=== PATIENT | female | born 1990 | race Two or more races ===

== ENCOUNTER → 2023-06-05 09:13 | Outpatient (BNVA) | payer OTHER, SELFPAY | PROVIDERS: PCP Pediatrics; Visit Provider Surgery ==

== ENCOUNTER 2023-07-12 08:03 | Outpatient (AMB) | payer OTHER, SELFPAY ==
--- OUTSIDE RECORDS SUMMARY | 2023-07-12 08:04 | XMS_ITS | Continuity of Care Document ---
Author Organization [facility] Address [address] [place] [address]- Care Team Providers Care Kiln Pusher Name Role Phone Ora Mendoza MD Primary Care Physician [place] [facility] [place] - 12/18/[address] [address]- Attending Physician: Not on Staff, Attending MD Allergies, Adverse Reactions, Alerts No Known Medication Allergies Immunizations Given and Recorded Vaccine Date Status Refusal Reason Measles/Mumps/Rubella Virus Vaccine 1 09/09/20 Giv en influenza virus vaccine, inactivated 01/15/19 Give n influenza virus vaccine, inactivated 05/17/17 Give n influenza virus vaccine, inactivated 08/02/15 Give n tetanus/diphtheria/pertussis, acel(Tdap) 08/02/15 Given 1Result Comment: diluent lot # [id number] 01/17/22 Medications cetirizine 10 mg oral tablet 1 tablet = 10 mg, By Mouth, Daily, # 90 tablet, 1 Refills, Maintenance, 06/30/18 13:06:48 EDT, Tablet Start Date: 06/30/18 Stop Date: 07/30/18 Status: Ordered fluconazole 150 mg oral tablet 1 tablet = 150 mg, By Mouth, Once, Repeat dose if still having symptoms in 3-7 days, # 1 tablet, 1 Refills, Soft Stop, 08/19/20 18:22:00 EDT, Tablet, [facility]/pharmacy #[id number], Partial fill upon patient request if the prescription is for a schedule II opioid... Start Date: 08/19/20 Status: Ordered left wrist splint left wrist splint, See Instructions, # 1 each, Refills 0, Tot. Refills 0, Maintenance, Dx: left carpel tunnel syndrome, 12/13/20 13:43:00 EDT, Supply Start Date: 12/13/20 Status: Ordered right wrist splint right wrist splint, See Instructions, # 1 each, Refills 0, Tot. Refills 0, Maintenance, Dx: right carpel tunnel syndrome, 12/13/20 13:44:00 EDT, Supply Start Date: 12/13/20 Status: Ordered SUMAtriptan 50 mg oral tablet 1 tablet = 50 mg, By Mouth, Daily, PRN for migraine headache, for 14 days, may repeat dose after 2 hours up to a maximum of 2, # 9 tablet, 0 Refills, Acute 12/23/20 10:41:00 EDT, 12/09/20 10:41:00 EDT, Tablet, [facility]/pharmacy #[id number], Partial fill upon pat... Start Date: 12/09/20 Stop Date: 12/23/20 Status: Ordered Problem List Condition Effective Dates Status Health Status Inform ant Obesity (BMI 35.0-39.9 witho ut comorbidity)(Confirmed) Active Carpal tunnel syndrome(Confirmed) Active
--- OUTSIDE RECORDS SUMMARY | 2023-07-12 08:04 | XMS_ITS | Continuity of Care Document ---
Author Organization [facility] Address [address] [place] [address]- Care Team Providers Care Casket Trimmer Name Role Phone Chencho Pina MD Primary Care Physician [place] [facility] [place](s[place] 07/27/19 - 08/26/[address] [address]- [facility] Attending Physician: Ladan Thibodeaux MD Allergies, Adverse Reactions, Alerts No Known Medication Allergies Immunizations Given and Recorded Vaccine Date Status Refusal Reason influenza virus vaccine, inactivated 01/15/19 Give n influenza virus vaccine, inactivated 05/17/17 Give n influenza virus vaccine, inactivated 08/02/15 Give n tetanus/diphtheria/pertussis, acel(Tdap) 08/02/15 Given Medications cetirizine 10 mg oral tablet 1 tablet = 10 mg, By Mouth, Daily, # 90 tablet, 1 Refills, Maintenance, 06/30/18 13:06:48 EDT, Tablet Start Date: 06/30/18 Stop Date: 07/30/18 Status: Ordered Heating Pad See Instructions, # 1 each, Maintenance, apply to upper back 3 times a day as needed for back pain for 20minutes at a time, 05/17/17 11:33:52, Compound Start Date: 05/17/17 Status: Ordered ibuprofen 800 mg oral tablet 800 mg, 1, tablet, By Mouth, 3 times a day, PRN, # 60 tablet, Refills 1, Tot. Refills 1, Acute 03/24/20 10:34:00 EST, for pain, 05/25/19 10:31:00 EST, Route to Pharmacy Electronically, [facility]/pharmacy #[id number], 154.1, cm, 05/25/19 9:56:00 EST, Height Start Date: 05/25/19 Stop Date: 03/24/20 Status: Ordered Right Thumb Spica Splint Right Thumb Spica Splint, See Instructions, # 1 each, Refills 0, Tot. 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 Refills 0, Maintenance, Left wrist splint to be worn every night to bed for carpal tunnel syndrome G56.00, 03/13/19 11:28:00 EST, Compound Start Date: 03/13/19 Status: Ordered Wrist splint cocked to neutral position Wrist splint cocked to neutral position, See Instructions, # 1 each, Refills 0, Tot. Refills 0, Maintenance, right wrist splint to be worn every night to bed for carpal tunnel syndrome G56.00, 09/05/18 9:34:55 EDT, Compound Start Date: 09/05/18 Status: Ordered
--- OUTSIDE RECORDS SUMMARY | 2023-07-12 08:04 | XMS_ITS | Continuity of Care Document ---
Author Organization [facility] Address [address] [place] [address]- Care Team Providers Care Laborer/Key Man Name Role Phone Kelly KC, Ora Ariza Primary Care Physician [place] [facility] [place] - 07/29/[address] [address]- Allergies, Adverse Reactions, Alerts No Known Medication [...] Date: 06/30/18 Stop Date: 07/30/18 Status: Ordered Right Thumb Spica Splint Right [...] EDT, Compound Start Date: 09/05/18 Status: Ordered Problem List Condition Effective Dates Status Health Status Inform ant Carpal tunnel syndrome(Confirmed) Active
--- OUTSIDE RECORDS SUMMARY | 2023-07-12 08:05 | XMS_ITS | Continuity of Care Document ---
Author Organization [facility] Address [address] [facility], [address], [address] [place] [address]- Care Team Providers Care At&T Retailer Sales Consultant Name Role Phone Chencho Pina MD Primary Care Physician [place] [facility] [place] 07/22/19 - 08/26/19 [facility] [address], [address], [address] [place] [address] [facility] Attending Physician: Steven Hidalgo MD Referring Physician: Red LAMB, Jessica Allergies, Adverse Reactions, Alerts No Known Medication [...] 05/25/19 10:31:00 EST, Route to Pharmacy Electronically, [facility]/pharmacy #[id number], 154.1, cm, 05/25/19 9:56:00 EST, Height [...]
--- OUTSIDE RECORDS SUMMARY | 2023-07-12 08:05 | XMS_ITS | Continuity of Care Document ---
Author Organization [facility] Address [address] [place] [address]- Care Team Providers Care Batter Mixer Name Role Phone Chencho Pina MD Primary Care Physician ( [phone] Encounter [facility] [place] [id number] Date(s): 03/13/19 - 03/23/[address] [address]- [place] Attending Physician: Admnataliia, Lucy Admitting Physician: Admtr, [id number] Referring Physician: Admtr, Ar8 Allergies, Adverse Reactions, Alerts No Known Medication [...] Date: 06/30/18 Stop Date: 07/30/18 Status: Ordered diclofenac potassium 50 mg oral tablet 1 tablet = 50 mg, By Mouth, 3 times a day, for 14 days, # 42 tablet, 0 Refills, Acute 03/27/19 11:21:00 EST, 03/13/19 11:21:00 EST, [facility]/pharmacy #[id number], 154.1, cm, 03/13/19 10:45:00 EST, Height Start Date: 03/13/19 Stop Date: 03/27/19 Status: Ordered Heating Pad See Instructions, # 1 each, Maintenance, apply to upper back 3 times a day as needed for back pain for 20minutes at a time, 05/17/17 11:33:52, Compound Start Date: 05/17/17 Status: Ordered Right Thumb Spica Splint Right [...]
--- OUTSIDE RECORDS SUMMARY | 2023-07-12 08:05 | XMS_ITS | Continuity of Care Document ---
Author Organization [facility] Address [address] [place] [address]- Care Team Providers Care Belt Buckle Maker Name Role Phone Kelly KC, Ora Ariza Primary Care Physician Encounter [facility] Date(s): 04/13/20 - 05/13/[address] [address]- Allergies, Adverse Reactions, Alerts No Known Medication [...]
--- OUTSIDE RECORDS SUMMARY | 2023-07-12 08:05 | XMS_ITS | Continuity of Care Document ---
Author Organization [facility] Address [address] [place] [address]- Care Team Providers Care Behavioral Psychologist Name Role Phone Ora Mendoza MD Primary Care Physician Encounter [facility] [place] Date(s): 07/18/20 - 09/11/[address] [address] Attending Physician: Not on Staff, Attending MD Referring Physician: Ora Mendoza MD Allergies, Adverse Reactions, Alerts No Known Medication Allergies Immunizations Given and Recorded Vaccine Date Status Refusal Reason Measles/Mumps/Rubella Virus Vaccine 1 09/09/20 Giv en influenza virus vaccine, inactivated 01/15/19 Give n influenza virus vaccine, inactivated 05/17/17 Give n influenza virus vaccine, inactivated 08/02/15 Give n tetanus/diphtheria/pertussis, acel(Tdap) 08/02/15 Given 1Result Comment: diluent lot # [id number] exp 01/17/22 Medications cetirizine 10 mg oral tablet 1 tablet = 10 mg, By Mouth, Daily, # 90 tablet, 1 Refills, Maintenance, 06/30/18 13:06:48 EDT, Tablet Start Date: 06/30/18 Stop Date: 07/30/18 Status: Ordered cyclobenzaprine 5 mg oral tablet 1 tablet = 5 mg, By Mouth, 3 times a day, for 7 days, # 21 tablet, 0 Refills, Acute 09/13/20 15:32:00 EDT, 09/06/20 15:32:00 EDT, Tablet, [facility]/pharmacy #[id number], Partial fill upon patient request if the prescription is for a schedule II opioid drug., 154.... Start Date: 09/06/20 Stop Date: 09/13/20 Status: Ordered fluconazole 150 mg oral tablet 1 tablet = 150 mg, By Mouth, Once, Repeat dose if still having symptoms in 3-7 days, # 1 tablet, 1 Refills, Soft Stop, 08/19/20 18:22:00 EDT, Tablet, [facility]/pharmacy #[id number], Partial fill upon patient request if the prescription is for a schedule II opioid... Start Date: 08/19/20 Status: Ordered naproxen 500 mg oral tablet 1 tablet = 500 mg, By Mouth, 2 times a day, PRN for pain, for 10 days, # 20 tablet, 0 Refills, Acute 09/16/20 15:32:00 EDT, 09/06/20 15:32:00 EDT, Tablet, [facility]/pharmacy #[id number], Partial fill upon patient request if the prescription is for a schedule II o... Start Date: 09/06/20 Stop Date: 09/16/20 Status: Ordered Problem List Condition Effective Dates Status Health Status Inform ant Obesity (BMI 35.0-39.9 witho ut comorbidity)(Confirmed) Active Carpal tunnel syndrome(Confirmed) Active
--- OUTSIDE RECORDS SUMMARY | 2023-07-12 08:05 | XMS_ITS | Continuity of Care Document ---
Author Organization [facility] Address [address] [place] [address]- Care Team Providers Care Supervisor Process Testing Name Role Phone Ora Mendoza MD Primary Care Physician En[place] [facility] [place] Date(s): 10/09/19 - 11/29/[address] [address]- [facility] Attending Physician: Miroslava Mcmillan CNM Admitting Physician: Miroslava Mcmillan CNM Referring Physician: Ora Mendoza MD Allergies, Adverse [...] Date: 06/30/18 Stop Date: 07/30/18 Status: Ordered ibuprofen 800 mg oral tablet 800 mg, 1, tablet, By Mouth, 3 times a day, PRN, # 60 tablet, Refills 1, Tot. Refills 1, Acute 03/24/20 10:34:00 EST, for pain, 05/25/19 10:31:00 EST, Route to Pharmacy Electronically, [facility]/pharmacy #[id number], 154.1, cm, 05/25/19 9:56:00 EST, [...]
--- OUTSIDE RECORDS SUMMARY | 2023-07-12 08:05 | XMS_ITS | Continuity of Care Document ---
Author Organization [facility] Address [address] [place] [address]- Care Team Providers Care Fisheries Management Biologist Name Role Phone Chencho Pina MD Primary Care Physician ( [phone] [place] [facility] [place] 02/11/19 - 04/02/[address] [address]- [facility] Attending Physician: Crystal Tamayo MD Admitting Physician: Crystal Tamayo MD Allergies, Adverse Reactions, Alerts No Known [...]
--- OUTSIDE RECORDS SUMMARY | 2023-07-12 08:05 | XMS_ITS | Continuity of Care Document ---
Author Organization [facility] Address [address] [place] [address]- Care Team Providers Care Med Surg Nurse Name Role Phone Ora Mendoza MD Primary Care Physician [place] [facility] [place](s[place] 09/04/19 - 10/07/[address] [address]- [place] Attending Physician: Ladan Thibodeaux MD Admitting Physician: Ladan Thibodeaux MD Allergies, Adverse Reactions, [...] 05/25/19 10:31:00 EST, Route to Pharmacy Electronically, [facility]/pharmacy #[id number], 154.1, cm, 05/25/19 9:56:00 EST, Height [...]
--- OUTSIDE RECORDS SUMMARY | 2023-07-12 08:05 | XMS_ITS | Continuity of Care Document ---
Author Organization [facility] Address [address] [place] [address]- Care Team Providers Care Building Architectural Designer Name Role Phone Kelly KC, Ora Ariza Primary Care Physician Encounter [facility] Date(s): 02/25/20 - 03/26/[address] [address]- Allergies, Adverse Reactions, Alerts No Known Medication [...]
--- OUTSIDE RECORDS SUMMARY | 2023-07-12 08:05 | XMS_ITS | Continuity of Care Document ---
Author Organization [facility] Address [address] [place] [address]- Care Team Providers Care Plumber'S Helper Name Role Phone Kelly KC, Ora Ariza Primary Care Physician Encounter [facility] Date(s): 02/22/20 - 03/23/[address] [address] Allergies, Adverse Reactions, Alerts No Known Medication [...] 05/25/19 10:31:00 EST, Route to Pharmacy Electronically, [facility]/pharmacy #[id number], 154.1, cm, 05/25/19 9:56:00 EST, [...]
--- OUTSIDE RECORDS SUMMARY | 2023-07-12 08:05 | XMS_ITS | Continuity of Care Document ---
Author Organization [facility] Address [address] [place] [address]- Care Team Providers Care Copy Center Associate Name Role Phone Kelly KC, Ora Ariza Primary Care Physician Encounter [facility] Date(s): 10/01/19 - 10/31/[address] [address]- [facility] Allergies, Adverse Reactions, Alerts No Known Medication [...] 05/25/19 10:31:00 EST, Route to Pharmacy Electronically, [facility]/pharmacy #[id number], 154.1, cm, 05/25/19 9:56:00 EST, Height [...]
--- OUTSIDE RECORDS SUMMARY | 2023-07-12 08:05 | XMS_ITS | Continuity of Care Document ---
Author Organization [facility] Address [address] [place] [address]- Care Team Providers Care Physician Practice Manager Name Role Phone Kelly KC, Ora Ariza Primary Care Physician Encounter [facility] Date(s): 02/28/21 - 03/30/[address] [address] Allergies, Adverse Reactions, Alerts No Known Medication Allergies Immunizations Given and Recorded Vaccine Date Status Refusal Reason Measles/Mumps/Rubella Virus Vaccine 1 09/09/20 Giv en influenza virus vaccine, inactivated 01/15/19 Give n influenza virus vaccine, inactivated 05/17/17 Give n influenza virus vaccine, inactivated 08/02/15 Give n tetanus/diphtheria/pertussis, acel(Tdap) 08/02/15 Given 1Result Comment: diluent lot # [id number] exp 01/17/22 Medications cetirizine 10 mg oral tablet 1 tablet = 10 mg, By Mouth, Daily, # 90 tablet, 1 Refills, Maintenance, 06/30/18 13:06:48 EDT, Tablet Start Date: 06/30/18 Stop Date: 07/30/18 Status: Ordered ibuprofen 600 mg oral tablet 600 mg, 1, tablet, By Mouth, 3 times a day, PRN, for 30 days, en espanol: take as soon as you feel a migraine coming on, # 90 tablet, Refills 0, Tot. Refills 0, Acute 04/08/21 12:06:00 EST, Headache,03/09/21 12:06:00 EST, Route to Pharmacy Electron... Start Date: 03/09/21 Stop Date: 04/08/21 Status: Ordered left wrist splint left wrist [...] EDT, Supply Start Date: 12/13/20 Status: Ordered Problem List Condition Effective Dates Status Health Status Inform ant Obesity (BMI 35.0-39.9 witho ut comorbidity)(Confirmed) Active Carpal tunnel syndrome(Confirmed) Active Obese class II(Confirmed) Active
--- OUTSIDE RECORDS SUMMARY | 2023-07-12 08:05 | XMS_ITS | Continuity of Care Document ---
Author Organization [facility] Address [address] [place] [address]- Care Team Providers Care Research Support Specialist Name Role Phone Ora Mendoza MD Primary Care Physician En[place] [facility] [place] Date(s): 09/18/19 - 10/21/[address] [address]- [facility] Attending Physician: Not on Staff, Attending MD [...] 05/25/19 10:31:00 EST, Route to Pharmacy Electronically, [facility]/pharmacy #[id number], 154.1, cm, 05/25/19 9:56:00 EST, [...]
--- OUTSIDE RECORDS SUMMARY | 2023-07-12 08:05 | XMS_ITS | Continuity of Care Document ---
Author Organization [facility] Address [address] [place] [address]- Care Team Providers Care Vp Corporate Partnerships Name Role Phone Kelly KC, Ora Ariza Primary Care Physician [place] [facility] [place](s[place] 11/24/21 - 12/24/[address] [address]- Allergies, Adverse Reactions, Alerts No Known Medication Allergies Immunizations Given and Recorded Vaccine Date Status Refusal Reason SARS-CoV-2 mRNA ([id number]) vax 05/04/21 Recorded SARS-CoV-2 mRNA ([id number]-[id number]) vax 04/13/21 Recorded Measles/Mumps/Rubella Virus Vaccine 1 09/09/20 Giv en influenza virus vaccine, inactivated 01/15/19 Give n influenza virus vaccine, inactivated 05/17/17 Give n influenza virus vaccine, inactivated 08/02/15 Give n tetanus/diphtheria/pertussis, acel(Tdap) 08/02/15 Given 1Result Comment: diluent lot # [id number] exp 01/17/22 Medications cetirizine 10 mg oral tablet 1 tablet = 10 mg, By Mouth, Daily, # 90 tablet, 1 Refills, Maintenance, 07/14/21 9:56:00 EDT, Tablet, [facility]/pharmacy #[id number], 154.1, cm, 03/09/21 11:54:00 EST, Height, 93.1, kg, 09/23/19 10:07:00 EDT, Dry Weight Start Date: 07/14/21 Status: Ordered ibuprofen 600 mg oral tablet 1, tablet, By Mouth, 2 times a day, PRN, # 60 tablet, Refills 0, Tot. Refills 0, Maintenance, Pain , Moderate, 11/09/21 12:18:00 EDT, Route to Pharmacy Electronically, [facility]/pharmacy #[id number], 154.1, cm, 03/09/21 11:54:00 EST, Height Start Date: 11/09/21 Status: Ordered left wrist splint left wrist [...] EDT, Supply Start Date: 12/13/20 Status: Ordered Topamax 25 mg oral tablet 1 tablet = 25 mg, By Mouth, Daily, For migraine prevention, must be taken daily., # 30 tablet, 5 Refills, Maintenance, 04/14/21 18:22:00 EST, Tablet, [facility]/pharmacy #[id number], Partial fill upon patient request if the prescription is for a schedule II opioid... Start Date: 04/14/21 Stop Date: 10/11/21 Status: Ordered Problem List Condition Confirmation Course Effective Dates Status Health St atus Informant Obesity (BMI 35.0-39.9 without comorbidity) Confirmed Active Carpal tunnel syndrome Confirmed Active Migraine Confirmed Active Nasal congestion Confirmed Active Obese class II Confirmed Active Patient Care team information Personnel Name: Ora Mendoza MD Address: Address: [address] [place] [address] [id number]
--- OUTSIDE RECORDS SUMMARY | 2023-07-12 08:05 | XMS_ITS | Continuity of Care Document ---
Author Organization [facility] Address [address] [place] [address]- Care Team Providers Care Radiologic Technologist Mammogram Name Role Phone Kelly KC, Ora Ariza Primary Care Physician [place] [facility] [place]07[place] - 07/07/[address] [address]- Allergies, Adverse Reactions, Alerts No Known Medication Allergies Immunizations Given and Recorded Vaccine Date Status Refusal Reason influenza virus vaccine, inactivated 02/08/22 Give n influenza virus vaccine, inactivated 01/15/19 Give n influenza virus vaccine, inactivated 05/17/17 Give n influenza virus vaccine, inactivated 08/02/15 Give n [id number] 12y+ bivalent booster vax 02/08/22 Given SARS-CoV-2 mRNA (qvxccuq-[id number]-ljmws) vax 05/04/21 Recorded SARS-CoV-2 mRNA ([id number]-[id number]-wnfrc) vax 04/13/21 Recorded Measles/Mumps/Rubella Virus Vaccine 1 09/09/20 Giv en tetanus/diphtheria/pertussis, acel(Tdap) 08/02/15 Given 1Result Comment: diluent lot # [id number] exp 01/17/22 Medications ibuprofen 600 mg oral tablet 1, tablet, By Mouth, 2 times a day, PRN, # 60 tablet, Refills 1, Tot. Refills 1, Maintenance, Pain , Moderate, 04/24/22 8:24:00 EST, Route to Pharmacy Electronically, [facility]/pharmacy #[id number], 154.1, cm, 02/08/22 15:06:00 EST, Height Start Date: 04/24/22 Status: Ordered left wrist splint left wrist splint, See Instructions, # 1 each, Refills 0, Tot. Refills 0, Maintenance, Dx: left carpel tunnel syndrome, 12/13/20 13:43:00 EDT, Supply Start Date: 12/13/20 Status: Ordered oxyCODONE 5 mg oral tablet 5 mg, 1, tablet, By Mouth, Every 4 hours, PRN, Refills 0, Tot. Refills 0, Maintenance, for pain, 06/15/22 9:19:00 EDT, Partial fill upon patient request if the prescription is for a schedule II opioid drug. Start Date: 06/15/22 Status: Ordered right wrist splint right wrist splint, See Instructions, # 1 each, Refills 0, Tot. Refills 0, Maintenance, Dx: right carpel tunnel syndrome, 12/13/20 13:44:00 EDT, Supply Start Date: 12/13/20 Status: Ordered Problem List Condition Confirmation Course Effective Dates Status Health St atus Informant Obesity (BMI 35.0-39.9 without comorbidity) Confirmed Active Carpal tunnel syndrome Confirmed Active Dysuria Confirmed Active Migraine Confirmed Active Nasal congestion Confirmed Active Obese class II Confirmed Active Patient Care team information Care Team Personnel Name: Kelly KC, Ora Ariza Position: S Resident Member Role: PCP Address: Address: [address] [place] [address]- Care Team Related Persons Name: ABY OBREGON Name: JACEK TURNER Address: home [address] [place] [address] Name: LATASHA TURNER Address: home [address] [place] [address]
--- OUTSIDE RECORDS SUMMARY | 2023-07-12 08:05 | XMS_ITS | Continuity of Care Document ---
Author Organization [facility] Address [address] [place] [address]- Care Team Providers Care Sheet Metal Worker Supervisor Name Role Phone Kelly KC, Ora Ariza Primary Care Physician Encounter [facility] [place] Date(s): 11/29/20 - 12/29/[address] [address] Allergies, Adverse Reactions, Alerts No Known Medication Allergies Immunizations Given and Recorded Vaccine Date Status Refusal Reason Measles/Mumps/Rubella Virus Vaccine 1 09/09/20 Giv en influenza virus vaccine, inactivated 01/15/19 Give n influenza virus vaccine, inactivated 05/17/17 Give n influenza virus vaccine, inactivated 08/02/15 Give n tetanus/diphtheria/pertussis, acel(Tdap) 08/02/15 Given 1Result Comment: diluent lot # [id number] 01/17/22 Medications cetirizine 10 mg oral [...] Refills, Soft Stop, 08/19/20 18:22:00 EDT, Tablet, [facility]/pharmacy #[id number], Partial fill upon patient request if the [...]
--- OUTSIDE RECORDS SUMMARY | 2023-07-12 08:05 | XMS_ITS | Continuity of Care Document ---
Author Organization [facility] Address [address] [place] [address]- Care Team Providers Care Tank Truck Mechanic Name Role Phone Ora Mendoza MD Primary Care Physician Encounter [facility] [place] ACCT R [id number] Date(s): 11/23/22 - 12/23/[address] [address]- Attending Physician: Admtr, Herev8 Admitting Physician: Admtr, Ar8 Referring Physician: Admtr, Ar8 Allergies, Adverse Reactions, Alerts No Known Medication Allergies Immunizations Given and Recorded Vaccine Date Status Refusal Reason influenza virus vaccine, inactivated 02/08/22 Give n influenza virus vaccine, inactivated 01/15/19 Give n influenza virus vaccine, inactivated 05/17/17 Give n influenza virus vaccine, inactivated 08/02/15 Give n [id number] 12y+ bivalent booster vax 02/08/22 Given SARS-CoV-2 mRNA (pqaalus-zsni-uooyh) vax 05/04/21 Recorded SARS-CoV-2 mRNA (qjbkunm-gjhc-zesuy) vax 04/13/21 Recorded Measles/Mumps/Rubella Virus Vaccine 1 09/09/20 Giv en tetanus/diphtheria/pertussis, acel(Tdap) 08/02/15 Given 1Result Comment: diluent lot # [id number] exp 01/17/22 Medications ibuprofen 600 mg oral tablet 1, tablet, By Mouth, 2 times a day, PRN, # 60 tablet, Refills 1, Tot. Refills 1, Maintenance, Pain , Moderate, 04/24/22 8:24:00 EST, Route to Pharmacy Electronically, [facility]/pharmacy #[id number], 154.1, cm, 02/08/22 15:06:00 EST, Height Start Date: 04/24/22 Status: Ordered ibuprofen 800 mg oral tablet 800 mg, 1, tablet, By Mouth, 3 times a day, # 90 tablet, Refills 0, Tot. Refills 0, Acute 03/24/23 15:45:00 EST, 11/23/22 15:45:00 EDT, Route to Pharmacy Electronically, [facility]/pharmacy #[id number], Partial fill upon patient request if the prescription is for... Start Date: 11/23/22 Stop Date: 03/24/23 Status: Ordered left wrist splint left wrist [...] Confirmed Active Obese class II Confirmed Active Social History Social History Type Response Smoking Status Never (less than 100 in lifetime) entered on: 10/10/22 Sex Patient Care team information Care Team Personnel Name: Ora Mendoza MD Position: S Resident Member Role: PCP Address: Address: [address] [place] [address]- Care Team Related Persons Name: ABY OBREGON Name: JACEK TURNER Address: home [address] [place] [address] Name: LATASHA TURNER Address: home [address] [place] [address]
--- OUTSIDE RECORDS SUMMARY | 2023-07-12 08:05 | XMS_ITS | Continuity of Care Document ---
Author Organization [facility] Address [address] [place] [address]- Care Team Providers Care Ripening Room Attendant Name Role Phone Kelly KC, Ora Ariza Primary Care Physician Encounter [facility] ACCT [facility] [id number] Date(s): 12/29/20 - 01/28/[address] [address]- Attending Physician: Lucy Leavitt Admitting Physician: Admtr, Lucy Referring Physician: Admtr, Ar8 Allergies, Adverse Reactions, Alerts No Known Medication Allergies Immunizations Given and Recorded Vaccine Date Status Refusal Reason Measles/Mumps/Rubella Virus Vaccine 1 09/09/20 Giv en influenza virus vaccine, inactivated 01/15/19 Give n influenza virus vaccine, inactivated 05/17/17 Give n influenza virus vaccine, inactivated 08/02/15 Give n tetanus/diphtheria/pertussis, acel(Tdap) 08/02/15 Given 1Result Comment: diluent lot # [id number] exp 01/17/22 Medications cetirizine 10 mg oral [...] Refills, Soft Stop, 08/19/20 18:22:00 EDT, Tablet, [id number], Partial fill upon patient request if the [...]
--- OUTSIDE RECORDS SUMMARY | 2023-07-12 08:05 | XMS_ITS | Continuity of Care Document ---
Author Organization [facility] Address [address] [place] [address]- Care Team Providers Care Slip Laster Name Role Phone Ora Mendoza MD Primary Care Physician [place] [facility] [place]/16/[place] - 03/24/[address] [address] Attending Physician: Subha Márquez MD Admitting Physician: Subha Márquez MD Referring Physician: Ora Mendoza MD Allergies, Adverse Reactions, Alerts No Known Medication Allergies Immunizations Given and Recorded Vaccine Date Status Refusal Reason influenza virus vaccine, inactivated 02/08/22 Give n influenza virus vaccine, inactivated 01/15/19 Give n influenza virus vaccine, inactivated 05/17/17 Give n influenza virus vaccine, inactivated 08/02/15 Give n [id number] 12y+ bivalent booster vax 02/08/22 Given SARS-CoV-2 mRNA (ppzrchp-cacx-bcrcu) vax 05/04/21 Recorded SARS-CoV-2 mRNA (yffboab-wwjd-mrokj) vax 04/13/21 Recorded Measles/Mumps/Rubella Virus Vaccine 1 09/09/20 Giv en tetanus/diphtheria/pertussis, acel(Tdap) 08/02/15 Given 1Result Comment: diluent lot # [id number] exp 01/17/22 Medications ibuprofen 600 mg oral tablet 1, tablet, By Mouth, 2 times a day, PRN, # 60 tablet, Refills 0, Tot. Refills 0, Maintenance, Pain , Moderate, 02/08/22 15:31:00 EST, Route to Pharmacy Electronically, [facility]/pharmacy #[id number], 154.1, cm, 02/08/22 15:06:00 EST, Height Start Date: 02/08/22 Status: Ordered left wrist splint left wrist [...] daily., # 30 tablet, 5 Refills, Maintenance, 02/08/22 15:31:00 EST, Tablet, [facility]/pharmacy #[id number], Partial fill upon patient request if the prescription is for a schedule II opioid... Start Date: 02/08/22 Stop Date: 08/07/22 Status: Ordered Problem List Condition Confirmation Course Effective Dates Status Health St atus Informant Obesity (BMI 35.0-39.9 without comorbidity) Confirmed Active Carpal tunnel syndrome Confirmed Active Migraine Confirmed Active Nasal congestion Confirmed Active Obese class II Confirmed Active Patient Care team information Care Team Personnel Name: Ora Mendoza MD Position: S Resident Member Role: PCP Address: Address: [address] [place] [address]- Care Team Related Persons Name: ABY OBREGON Name: JACEK TURNER Address: home [address] [place] [address] Name: LATASHA TURNER Address: home [address] [facility] [place] [address]
--- OUTSIDE RECORDS SUMMARY | 2023-07-12 08:05 | XMS_ITS | Continuity of Care Document ---
Author Organization [facility] Address [address] [place] [address]- Care Team Providers Care Helicopter Repairer Name Role Phone Kelly KC, Ora Ariza Primary Care Physician Encounter [facility] [place] Date(s): 10/30/19 - 11/29/[address] [address]- [facility] Attending Physician: Admtr, Herve8 Admitting Physician: Admtr, Ar8 Referring Physician: Admtr, [...] 05/25/19 10:31:00 EST, Route to Pharmacy Electronically, [facility]/pharmacy #[id number], 154.1, cm, 05/25/19 9:56:00 EST, [...]
--- OUTSIDE RECORDS SUMMARY | 2023-07-12 08:05 | XMS_ITS | Continuity of Care Document ---
Author Organization [facility] Address [address] [place] [address]- Care Team Providers Care Packaging Sales Consultant Name Role Phone Kelly KC, Ora Ariza Primary Care Physician Encounter [facility] Date(s): 08/18/20 - 09/17/[address] [address]- Allergies, Adverse Reactions, Alerts No Known Medication Allergies Immunizations Given and Recorded Vaccine Date Status Refusal Reason Measles/Mumps/Rubella Virus Vaccine 1 09/09/20 Giv en influenza virus vaccine, inactivated 01/15/19 Give n influenza virus vaccine, inactivated 05/17/17 Give n influenza virus vaccine, inactivated 08/02/15 Give n tetanus/diphtheria/pertussis, acel(Tdap) 08/02/15 Given 1Result Comment: diluent lot # [id number] exp 01/17/22 Medications cetirizine 10 mg oral [...] Soft Stop, 08/19/20 18:22:00 EDT, Tablet, [facility]/pharmacy #[id number], Partial fill upon patient request if the prescription is for a schedule II opioid... Start Date: 08/19/20 Status: Ordered Problem List Condition Effective Dates Status Health Status Inform ant Obesity (BMI 35.0-39.9 witho ut comorbidity)(Confirmed) Active Carpal tunnel syndrome(Confirmed) Active
--- OUTSIDE RECORDS SUMMARY | 2023-07-12 08:05 | XMS_ITS | Continuity of Care Document ---
Author Organization [facility] Address [address] [place] [address]- Care Team Providers Care Brick Shader Name Role Phone Kelly KC, Ora Ariza Primary Care Physician [place] [facility] [place] R [id number] Date(s): 12/13/20 - 01/28/[address] [address]- Attending Physician: Not on Staff, Attending MD Allergies, Adverse Reactions, Alerts No Known Medication Allergies Immunizations Given and Recorded Vaccine Date Status Refusal Reason Measles/Mumps/Rubella Virus Vaccine 1 09/09/20 Giv en influenza virus vaccine, inactivated 01/15/19 Give n influenza virus vaccine, inactivated 05/17/17 Give n influenza virus vaccine, inactivated 08/02/15 Give n tetanus/diphtheria/pertussis, acel(Tdap) 08/02/15 Given 1Result Comment: diluent lot # [id number] exp 01/17/22 Medications cetirizine 10 mg oral [...] Soft Stop, 08/19/20 18:22:00 EDT, Tablet, [id number], Partial fill upon patient request if the [...]
--- OUTSIDE RECORDS SUMMARY | 2023-07-12 08:05 | XMS_ITS | Continuity of Care Document ---
Author Organization [facility] Address [address] [place] [address]- Care Team Providers Care Bus Or Truck Garage Mechanic Name Role Phone Ora Mendoza MD Primary Care Physician Encounter [facility] [place] Date(s): 04/02/23 - 05/02/[address] [address]- Allergies, Adverse Reactions, Alerts No Known Medication Allergies Immunizations Given and Recorded Vaccine Date Status Refusal Reason influenza virus vaccine, inactivated 02/08/22 Give n influenza virus vaccine, inactivated 01/15/19 Give n influenza virus vaccine, inactivated 05/17/17 Give n influenza virus vaccine, inactivated 08/02/15 Give n [id number] 12y+ bivalent booster vax 02/08/22 Given SARS-CoV-2 mRNA (dpdqmnl-jdgu-mqiwx) vax 05/04/21 Recorded SARS-CoV-2 mRNA (eyxtlbu-cfft-omzsy) vax 04/13/21 Recorded Measles/Mumps/Rubella Virus Vaccine 1 09/09/20 Giv en tetanus/diphtheria/pertussis, acel(Tdap) 08/02/15 Given 1Result Comment: diluent lot # [id number] exp 01/17/22 Medications Aerochamber See Instructions, # 1 each, Maintenance, to be used with asthmanex, 03/12/23 9:13:00 EST, Supply, 156, cm, 03/12/23 8:53:00 EST, Height, 99.4, kg, 03/04/23 22:47:00 EST, Dry Weight Start Date: 03/12/23 Status: Ordered escitalopram 10 mg oral tablet 1 tablet = 10 mg, By Mouth, Daily, # 30 tablet, 11 Refills, Maintenance, 05/01/23 17:48:00 EST, Tablet, [facility]/pharmacy #[id number], Partial fill upon patient request if the prescription is for a schedule II opioid drug., 156, cm, 05/01/23 16:03:00 EST, Height... Start Date: 05/01/23 Status: Ordered hydrOXYzine hydrochloride 25 mg oral tablet 1 capsule, By Mouth, 4 times a day, PRN for itching, # 40 capsule, 0 Refills, Maintenance, 05/01/2416:12:00 EST, Capsule, Partial fill upon patient request if the prescription is for a schedule II opioid drug. Start Date: 05/01/23 Stop Date: 05/11/23 Status: Ordered ibuprofen 200 mg oral tablet 400 mg, 2, tablet, By Mouth, Every 4 hours, PRN, for 14 days, # 100 tablet, Refills 1, Tot. Refills1, Acute 05/30/23 10:29:00 EST, Pain , Mild, 05/02/23 10:29:00 EST, Route to Pharmacy Electronically, [facility]/pharmacy #[id number], Partial fill upon patient req... Start Date: 05/02/23 Stop Date: 05/30/23 Status: Ordered mometasone 100 mcg/inh inhalation aerosol 2 puffs, Inhalation, 2 times a day, rinse mouth and throat after use, # 13 Gm, 11 Refills, Maintenance, 03/12/23 9:12:00 EST, Aerosol, [facility]/pharmacy #[id number], Partial fill upon patient request if the prescription is for a schedule II opioid drug., 156, cm... Start Date: 03/12/23 Status: Ordered predniSONE 10 mg oral tablet See Instructions, Take 6 tabs (60 mg) by mouth on 03/06/23, then take 5 tabs (50 mg) on 03/07/23, then 4 tabs (40 mg) on 03/08/23. then take 3 tabs (30 mg) on 03/09/23, then take 2 tabs (20 mg) on 03/10/23, then take 1 tab (10 mg) on 03/11/23, # 2... Start Date: 03/04/23 Status: Ordered Ventolin HFA 108 mcg/inh inhalation aerosol with adapter INHALE 2 PUFFS BY MOUTH EVERY 4 HOURS NEEDED FOR WHEEZING/DIFFICULTY BREATHING Start Date: 05/01/23 Status: Ordered Problem List Condition Confirmation Course Effective Dates Status Health St atus Informant Obesity (BMI 35.0-39.9 without comorbidity) Confirmed Active Carpal tunnel syndrome Confirmed Active Dysuria Confirmed Active Migraine Confirmed Active Nasal congestion Confirmed Active Severe obesity Confirmed Active Social History Social History Type Response Smoking Status Never (less than 100 in lifetime) entered on: 10/10/22 Sex Patient Care team information Care Team Personnel Name: Ora Mendoza MD Position: [facility] Resident Member Role: PCP Address: Address: [address] [place] [address]- Care Team Related Persons Name: ABY OBREGON Address: [place] [address] Name: JACEK TURNER Address: home [address] [place] [address] Name: LATASHA TURNER Address: home [address] [place] [address]
--- OUTSIDE RECORDS SUMMARY | 2023-07-12 08:05 | XMS_ITS | Continuity of Care Document ---
Author Organization [facility] Address [address] [place] [address]- Care Team Providers Care Optometric Assistant Name Role Phone Chencho Pina MD Primary Care Physician Encounter [facility] [place] Date(s): 08/10/19 - 09/09/[address] [address]- [facility] Attending Physician: Jessica Moon NP Allergies, Adverse Reactions, Alerts No Known Medication [...] 05/25/19 10:31:00 EST, Route to Pharmacy Electronically, [facility]/pharmacy #[id number], 154.1, cm, 05/25/19 9:56:00 EST, [...]
--- OUTSIDE RECORDS SUMMARY | 2023-07-12 08:05 | XMS_ITS | Continuity of Care Document ---
Author Organization [facility] Address [address] [place] [address]- Care Team Providers Care Creative Arts Therapist Name Role Phone Kelly KC, Ora Ariza Primary Care Physician Encounter [facility] [place] Date(s): 03/17/23 - 04/27/[address] [address] Allergies, Adverse Reactions, Alerts No Known Medication Allergies Immunizations Given and Recorded Vaccine Date Status Refusal Reason influenza virus vaccine, inactivated 02/08/22 Give n influenza virus vaccine, inactivated 01/15/19 Give n influenza virus vaccine, inactivated 05/17/17 Give n influenza virus vaccine, inactivated 08/02/15 Give n [id number] 12y+ bivalent booster vax 02/08/22 Given SARS-CoV-2 mRNA (fvgrpmc-hlmu-fjuqy) vax 05/04/21 Recorded SARS-CoV-2 mRNA (wkspkid-wxns-ysgjn) vax 04/13/21 Recorded Measles/Mumps/Rubella Virus Vaccine 1 09/09/20 Giv en tetanus/diphtheria/pertussis, acel(Tdap) 08/02/15 Given 1Result Comment: diluent lot # [id number] exp 01/17/22 Medications Aerochamber See Instructions, # 1 each, Maintenance, to be used with asthmanex, 03/12/23 9:13:00 EST, Supply, 156, cm, 03/12/23 8:53:00 EST, Height, 99.4, kg, 03/04/23 22:47:00 EST, Dry Weight Start Date: 03/12/23 Status: Ordered mometasone 100 mcg/inh inhalation aerosol 2 puffs, Inhalation, 2 times a day, rinse mouth and throat after use, # 13 Gm, 11 Refills, Maintenance, 03/12/23 9:12:00 EST, [facility]erosol, [id number], Partial fill upon patient request if [...] # 2... Start Date: 03/04/23 Status: Ordered Problem List Condition Confirmation Course [...] S Resident Member Role: PCP Address: Address: [address] [place] [address]- Care Team Related Persons Name: ABY OBREGON Address: [place] [address] Name: JACEK TURNER Address: home [address] [place] [address] Name: LATASHA TURNER Address: home [address] [place] [address]
--- OUTSIDE RECORDS SUMMARY | 2023-07-12 08:05 | XMS_ITS | Continuity of Care Document ---
Author Organization [facility] Address [address] [place] [address]- Care Team Providers Care Dam Attendant Name Role Phone Chencho Pina MD Primary Care Physician [place] [facility] Date(s): 08/03/19 - 08/10/[address] [address]- [place] Encounter Diagnosis Carpal tunnel syndrome(Discharge Diagnosis) - 08/03/19 Attending Physician: Ladan Thibodeaux MD Allergies, Adverse [...] 05/25/19 10:31:00 EST, Route to Pharmacy Electronically, [facility]/pharmacy #[id number], 154.1, cm, 05/25/19 9:56:00 EST, Height Start [...] Start Date: 09/05/18 Status: Ordered Problem List Diagnosis Diagnosis Type Effective Dates Health Status Cl inical Service Informant Carpal tunnel syndrome Discharge Diagnosis 08/03/19
--- OUTSIDE RECORDS SUMMARY | 2023-07-12 08:05 | XMS_ITS | Continuity of Care Document ---
Author Organization [facility] Address [address] [place] [address]- Care Team Providers Care Drawer Liner Name Role Phone Kelly KC, Ora Ariza Primary Care Physician Encounter [facility] [place] Date(s): 01/02/23 - 02/01/[address] [address]- Allergies, Adverse Reactions, Alerts No Known Medication Allergies Immunizations Given and Recorded Vaccine Date Status Refusal Reason influenza virus vaccine, inactivated 02/08/22 Give n influenza virus vaccine, inactivated 01/15/19 Give n influenza virus vaccine, inactivated 05/17/17 Give n influenza virus vaccine, inactivated 08/02/15 Give n [id number] 12y+ bivalent booster vax 02/08/22 Given SARS-CoV-2 mRNA (soddvkf-ijnm-vuqks) vax 05/04/21 Recorded SARS-CoV-2 mRNA (liseupk-jgqw-ivvbk) vax 04/13/21 Recorded Measles/Mumps/Rubella Virus Vaccine 1 09/09/20 Giv en tetanus/diphtheria/pertussis, acel(Tdap) 08/02/15 Given 1Result Comment: diluent lot # [id number] exp 01/17/22 Medications ibuprofen 600 mg oral tablet 1, tablet, By Mouth, 2 times a day, PRN, # 60 tablet, Refills 1, Tot. Refills 1, Maintenance, Pain , Moderate, 04/24/22 8:24:00 EST, Route to Pharmacy Electronically, [facility]/pharmacy #[id number], 154.1, cm, 02/08/22 15:06:00 EST, Height Start Date: 04/24/22 Status: Ordered ibuprofen 800 mg oral tablet 800 mg, 1, tablet, By Mouth, 3 times a day, # 90 tablet, Refills 0, Tot. Refills 0, Acute 03/24/23 15:45:00 EST, 11/23/22 15:45:00 EDT, Route to Pharmacy Electronically, [facility]/pharmacy #[id number], Partial fill upon patient request if the [...] S Resident Member Role: PCP Address: Address: [address] [place] [address]- Care Team Related Persons Name: ABY OBREGON Name: JACEK TURNER Address: home [address] [place] [address] Name: LATASHA TURNER Address: home [address] [place] [address]
--- OUTSIDE RECORDS SUMMARY | 2023-07-12 08:05 | XMS_ITS | Continuity of Care Document ---
Author Organization [facility] Address [address] [place] [address]- Care Team Providers Care Configuration Management Administrator Name Role Phone Ora Mendoza MD Primary Care Physician [place] [facility] [place] 05/09/22 - 07/08/[address] [address]- Attending Physician: Not on Staff, Attending MD Allergies, Adverse Reactions, Alerts No Known Medication Allergies Immunizations Given and Recorded Vaccine Date Status Refusal Reason influenza virus vaccine, inactivated 02/08/22 Give n influenza virus vaccine, inactivated 01/15/19 Give n influenza virus vaccine, inactivated 05/17/17 Give n influenza virus vaccine, inactivated 08/02/15 Give n [id number] 12y+ bivalent booster vax 02/08/22 Given SARS-CoV-2 mRNA (anpwryj-brdk-hzpbi) vax 05/04/21 Recorded SARS-CoV-2 mRNA (qfdsace-rycn-bpkzl) vax 04/13/21 Recorded Measles/Mumps/Rubella Virus Vaccine 1 09/09/20 Giv en tetanus/diphtheria/pertussis, acel(Tdap) 08/02/15 Given 1Result Comment: diluent lot # [id number] exp 01/17/22 Medications ibuprofen 600 mg oral tablet 1, tablet, By Mouth, 2 times a day, PRN, # 60 tablet, Refills 1, Tot. Refills 1, Maintenance, Pain , Moderate, 04/24/22 8:24:00 EST, Route to Pharmacy Electronically, [facility]/pharmacy #[id number], 154.1, cm, 02/08/22 15:06:00 EST, Height Start Date: 1/31/23 Status: Ordered left wrist splint left wrist [...] S Resident Member Role: PCP Address: Address: [address] [place] [address]- Care Team Related Persons Name: ABY OBREGON Name: JACEK TURNER Address: home [address] [facility] [place] [address] Name: LATASHA TURNER Address: home [address] [place] [address]
--- OUTSIDE RECORDS SUMMARY | 2023-07-12 08:05 | XMS_ITS | Continuity of Care Document ---
Author Organization [facility] Address [address] [place] [address]- Care Team Providers Care Wort Extractor Name Role Phone Kelly KC, Ora Ariza Primary Care Physician [place] [facility] [place] Date(s): 05/15/21 - 06/14/[address] [address]- Allergies, Adverse Reactions, Alerts No Known Medication Allergies Immunizations Given and Recorded Vaccine Date Status Refusal Reason Measles/Mumps/Rubella Virus Vaccine 1 09/09/20 Giv en influenza virus vaccine, inactivated 01/15/19 Give n influenza virus vaccine, inactivated 05/17/17 Give n influenza virus vaccine, inactivated 08/02/15 Give n tetanus/diphtheria/pertussis, acel(Tdap) 08/02/15 Given 1Result Comment: diluent lot # [id number] exp 01/17/22 Medications cetirizine 10 mg oral tablet 1 tablet = 10 mg, By Mouth, Daily, # 90 tablet, 1 Refills, Maintenance, 06/30/18 13:06:48 EDT, Tablet Start Date: 06/30/18 Stop Date: 07/30/18 Status: Ordered ibuprofen 600 mg oral tablet 1, tablet, By Mouth, 3 times a day, PRN, # 90 tablet, Refills 0, NEEDED FOR HEADACHE, Route to Pharmacy Electronically, [id number], 154.1, cm, 03/09/21 11:54:00 EST, Height, 93.1, kg, 09/23/19 10:07:00 EDT, Dry Weight Start Date: 03/31/21 Status: Ordered left wrist splint left wrist [...] 5 Refills, Maintenance, 04/14/21 18:22:00 EST, Tablet, [facility]/pharmacy #[id number], Partial fill upon patient request if the prescription is for a schedule II opioid... Start Date: 04/14/21 Stop Date: 10/11/21 Status: Ordered Problem List Condition Effective Dates Status Health Status Inform ant Obesity (BMI 35.0-39.9 witho ut comorbidity)(Confirmed) Active Carpal tunnel syndrome(Confirmed) Active Obese class II(Confirmed) Active
--- OUTSIDE RECORDS SUMMARY | 2023-07-12 08:05 | XMS_ITS | Continuity of Care Document ---
Author Organization [facility] Address [address] [place] [address]- Care Team Providers Care Retail Warehouse Supervisor Name Role Phone Chencho Pina MD Primary Care Physician Encounter [facility] [place] Date(s): 02/04/19 - 03/12/[address] [address]- [facility] Attending Physician: Jessica Moon NP Admitting Physician: Jessica Moon NP Referring Physician: Jessica Moon NP Allergies, Adverse Reactions, [...] 11:33:52, Compound Start Date: 05/17/17 Status: Ordered naproxen 500 mg oral tablet 1 tablet = 500 mg, By Mouth, 2 times a day, PRN Pain , Moderate, # 60 tablet, 0 Refills, Maintenance, 11/13/18 14:09:16 EDT, Tablet Start Date: 11/13/18 Status: Ordered Right Thumb Spica Splint Right [...]
--- OUTSIDE RECORDS SUMMARY | 2023-07-12 08:05 | XMS_ITS | Continuity of Care Document ---
Author Organization [facility] Address [address] [place] [address]- Care Team Providers Care Rn Correctional Name Role Phone Kelly KC, Ora Ariza Primary Care Physician Encounter [facility] Date(s): 01/02/23 - 02/02/[address] [address]- Attending Physician: Not on Staff, Attending MD Allergies, Adverse Reactions, Alerts No Known Medication Allergies Immunizations Given and Recorded Vaccine Date Status Refusal Reason influenza virus vaccine, inactivated 02/08/22 Give n influenza virus vaccine, inactivated 01/15/19 Give n influenza virus vaccine, inactivated 05/17/17 Give n influenza virus vaccine, inactivated 08/02/15 Give n [id number] 12y+ bivalent booster vax 02/08/22 Given SARS-CoV-2 mRNA (vzlxkdx-lsyy-eskcb) vax 05/04/21 Recorded SARS-CoV-2 mRNA (kqswruw-zyic-crhpa) vax 04/13/21 Recorded Measles/Mumps/Rubella Virus Vaccine 1 09/09/20 Giv en tetanus/diphtheria/pertussis, acel(Tdap) 08/02/15 Given 1Result Comment: diluent lot # [id number] exp 01/17/22 Medications ibuprofen 600 mg oral tablet 1, tablet, By Mouth, 2 times a day, PRN, # 60 tablet, Refills 1, Tot. Refills 1, Maintenance, Pain , Moderate, 04/24/22 8:24:00 EST, Route to Pharmacy Electronically, [facility]/pharmacy #[id number], 154.1, cm, 02/08/22 15:06:00 EST, Height Start Date: 04/24/22 Status: Ordered ibuprofen 800 mg oral tablet 800 mg, 1, tablet, By Mouth, 3 times a day, # 90 tablet, Refills 0, Tot. Refills 0, Acute 03/24/23 15:45:00 EST, 11/23/22 15:45:00 EDT, Route to Pharmacy Electronically, [facility]/pharmacy #[id number], Partial fill upon patient request if the [...] S Resident Member Role: PCP Address: Address: [address] [place] [address]- Care Team Related Persons Name: ABY OBREGON Name: JACEK TURNER Address: home [address] [place] [address] Name: LATASHA TURNRE Address: home [address] [place] [address]
--- OUTSIDE RECORDS SUMMARY | 2023-07-12 08:05 | XMS_ITS | Continuity of Care Document ---
Author Organization [facility] Address [address] [place] [address]- Care Team Providers Care Shingle Catcher Name Role Phone Kelly KC, Ora Ariza Primary Care Physician Encounter [facility] Date(s): 06/20/20 - 07/21/[address] [address]- Attending Physician: Rylee Silvestre MD Admitting Physician: Rylee Silvestre MD Allergies, Adverse Reactions, Alerts No Known [...]
--- OUTSIDE RECORDS SUMMARY | 2023-07-12 08:05 | XMS_ITS | Continuity of Care Document ---
Author Organization [facility] Address [address] [place] [address]- Care Team Providers Care International Organizer Name Role Phone Kelly KC, Ora Ariza Primary Care Physician Encounter [facility] Date(s): 07/17/22 - 08/22/[address] [address]- Attending Physician: Dale Pugh MD Admitting Physician: Dale Pugh MD Referring Physician: Dale Pugh MD Allergies, Adverse Reactions, Alerts No Known Medication Allergies Immunizations Given and Recorded Vaccine Date Status Refusal Reason influenza virus vaccine, inactivated 02/08/22 Give n influenza virus vaccine, inactivated 01/15/19 Give n influenza virus vaccine, inactivated 05/17/17 Give n influenza virus vaccine, inactivated 08/02/15 Give n [id number] 12y+ bivalent booster vax 02/08/22 Given SARS-CoV-2 mRNA (azzihmc-zerm-ofiex) vax 05/04/21 Recorded SARS-CoV-2 mRNA (bcmzczl-dwhq-rluwk) vax 04/13/21 Recorded Measles/Mumps/Rubella Virus Vaccine 1 09/09/20 Giv en tetanus/diphtheria/pertussis, acel(Tdap) 08/02/15 Given 1Result Comment: diluent lot # [id number] exp 01/17/22 Medications ibuprofen 600 mg oral tablet 1, tablet, By Mouth, 2 times a day, PRN, # 60 tablet, Refills 1, Tot. Refills 1, Maintenance, Pain , Moderate, 04/24/22 8:24:00 EST, Route to Pharmacy Electronically, [facility]/pharmacy #[id number], 154.1, cm, 02/08/22 15:06:00 EST, Height Start [...] S Resident Member Role: PCP Address: Address: [address] [place] [address]- Care Team Related Persons Name: ABY OBREGON Name: JACEK TURNER Address: home [address] [place] [address] Name: LATASHA TURNER Address: home [address] [place] [address]
--- OUTSIDE RECORDS SUMMARY | 2023-07-12 08:05 | XMS_ITS | Continuity of Care Document ---
Author Organization [facility] Address [address] [place] [address]- Care Team Providers Care Engineering Test Mechanic Name Role Phone Kelly KC, Ora Ariza Primary Care Physician Encounter [facility] Date(s): 09/28/19 - 11/01/[address] [address]- [facility] Attending Physician: Jessica Moon NP Admitting Physician: Jessica Moon NP Allergies, Adverse Reactions, [...] 05/25/19 10:31:00 EST, Route to Pharmacy Electronically, [facility]/pharmacy #[id number], 154.1, cm, 05/25/19 9:56:00 [...]
--- OUTSIDE RECORDS SUMMARY | 2023-07-12 08:05 | XMS_ITS | Continuity of Care Document ---
Author Organization [facility] Address [address] [place] [address]- Care Team Providers Care Cloth Examiner Name Role Phone Ora Mendoza MD Primary Care Physician [place] [facility] Date(s): 04/06/21 - 05/29/[address] [address]- Attending Physician: Harman Garsia MD Admitting Physician: Harman Garsia MD Referring Physician: Ora Mendoza MD Allergies, Adverse Reactions, Alerts No Known Medication Allergies Immunizations Given and Recorded Vaccine Date Status Refusal Reason Measles/Mumps/Rubella Virus Vaccine 1 09/09/20 Giv en influenza virus vaccine, inactivated 01/15/19 Give n influenza virus vaccine, inactivated 05/17/17 Give n influenza virus vaccine, inactivated 08/02/15 Give n tetanus/diphtheria/pertussis, acel(Tdap) 08/02/15 Given 1Result Comment: diluent lot # [id number] exp 01/17/22 Medications cetirizine 10 mg oral tablet 1 tablet = 10 mg, By Mouth, Daily, # 90 tablet, 1 Refills, Maintenance, 06/30/18 13:06:48 EDT, Tablet Start Date: 06/30/18 Stop Date: 07/30/18 Status: Ordered ibuprofen 600 mg oral tablet 1, tablet, By Mouth, 3 times a day, PRN, # 90 tablet, Refills 0, NEEDED FOR HEADACHE, Route to Pharmacy Electronically, [id number], 154.1, cm, 03/09/21 11:54:00 EST, Height, 93.1, [...] 5 Refills, Maintenance, 04/14/21 18:22:00 EST, Tablet, [facility]/pharmacy #[id number], Partial fill upon patient request if the prescription is for a schedule II opioid... Start Date: 04/14/21 Stop Date: 10/11/21 Status: Ordered Problem List Condition Effective Dates Status Health Status Inform ant Obesity (BMI 35.0-39.9 witho ut comorbidity)(Confirmed) Active Carpal tunnel syndrome(Confirmed) Active Obese class II(Confirmed) Active
--- OUTSIDE RECORDS SUMMARY | 2023-07-12 08:05 | XMS_ITS | Continuity of Care Document ---
Author Organization [facility] Address [address] [place] [address]- Care Team Providers Care Social And Political Studies Professor Name Role Phone Ora Mendoza MD Primary Care Physician Encounter [facility] Date(s): 03/12/23 - 05/15/[address] [address]- Attending Physician: Not on Staff, Attending MD Allergies, Adverse Reactions, Alerts No Known Medication Allergies Immunizations Given and Recorded Vaccine Date Status Refusal Reason influenza virus vaccine, inactivated 02/08/22 Give n influenza virus vaccine, inactivated 01/15/19 Give n influenza virus vaccine, inactivated 05/17/17 Give n influenza virus vaccine, inactivated 08/02/15 Give n [id number] 12y+ bivalent booster vax 02/08/22 Given SARS-CoV-2 mRNA (iuizern-bgmt-rzfzc) vax 05/04/21 Recorded SARS-CoV-2 mRNA (txcsucf-digm-qvaql) vax 04/13/21 Recorded Measles/Mumps/Rubella Virus Vaccine 1 09/09/20 Giv en tetanus/diphtheria/pertussis, acel(Tdap) 08/02/15 Given 1Result Comment: diluent lot # [id number] exp 01/17/22 Medications Aerochamber See Instructions, # 1 each, Maintenance, to be used with asthmanex, 03/12/23 9:13:00 EST, Supply, 156, cm, 03/12/23 8:53:00 EST, Height, 99.4, kg, 03/04/23 22:47:00 EST, Dry Weight Start Date: 03/12/23 Status: Ordered escitalopram 10 mg oral tablet 1 tablet = 10 mg, By Mouth, Daily, # 30 tablet, 11 Refills, Maintenance, 05/01/23 17:48:00 EST, Tablet, [facility]/pharmacy #[id number], Partial fill upon patient request if [...] 05/02/23 10:29:00 EST, Route to Pharmacy Electronically, [facility]/pharmacy #[id number], Partial fill upon patient req... Start Date: 05/02/23 Stop Date: 05/30/23 Status: Ordered mometasone 100 mcg/inh inhalation aerosol 2 puffs, Inhalation, 2 times a day, rinse mouth and throat after use, # 13 Gm, 11 Refills, Maintenance, 03/12/23 9:12:00 EST, Aerosol, [facility]/pharmacy #1157, Partial fill upon patient request [...] Personnel Name: Kelly KC, Ora Ariza Position: [facility] Resident Member Role: PCP Address: Address: [address] [place] [address]- Care Team Related Persons Name: ABY OBREGON Address: [place] [address] Name: JACEK TURNER Address: home [address] [place] [address] Name: LATASHA TURNER Address: home [address] [place] [address]
--- OUTSIDE RECORDS SUMMARY | 2023-07-12 08:05 | XMS_ITS | Continuity of Care Document ---
Author Organization [facility] Address [address] [place] [address]- Care Team Providers Care Glaze Carrier Name Role Phone Kelly KC, Ora Ariza Primary Care Physician Encounter [facility] Date(s): 09/24/19 - 10/24/[address] [address]- [facility] Allergies, Adverse Reactions, Alerts No Known Medication [...] 05/25/19 10:31:00 EST, Route to Pharmacy Electronically, [facility]/pharmacy #[id number], 154.1, cm, 05/25/19 9:56:00 EST, Height [...]
--- OUTSIDE RECORDS SUMMARY | 2023-07-12 08:05 | XMS_ITS | Continuity of Care Document ---
Author Organization [facility] Address [address] [place] [address]- Care Team Providers Care Residence Director Name Role Phone Kelly KC, Ora Ariza Primary Care Physician Encounter [facility] Date(s): 11/15/20 - 12/15/[address] [address] Allergies, Adverse Reactions, Alerts No Known Medication Allergies Immunizations Given and Recorded Vaccine Date Status Refusal Reason Measles/Mumps/Rubella Virus Vaccine 1 09/09/20 Giv en influenza virus vaccine, inactivated 01/15/19 Give n influenza virus vaccine, inactivated 05/17/17 Give n influenza virus vaccine, inactivated 08/02/15 Give n tetanus/diphtheria/pertussis, acel(Tdap) 08/02/15 Given 1Result Comment: diluent lot # [id number] exp 01/17/22 Medications cetirizine 10 mg oral [...] Refills, Soft Stop, 08/19/20 18:22:00 EDT, Tablet, [facility]/pharmacy #[id number], Partial fill upon patient request if the [...] 12/23/20 10:41:00 EDT, 12/09/20 10:41:00 EDT, Tablet, [facility]/pharmacy #[id number], Partial fill upon pat... Start Date: 12/09/20 Stop Date: 12/23/20 Status: Ordered Problem List Condition Effective Dates Status Health Status Inform ant Obesity (BMI 35.0-39.9 witho ut comorbidity)(Confirmed) Active Carpal tunnel syndrome(Confirmed) Active
--- OUTSIDE RECORDS SUMMARY | 2023-07-12 08:05 | XMS_ITS | Continuity of Care Document ---
Author Organization [facility] Address [address] [place] [address]- Care Team Providers Care Bilingual Loan Processor Name Role Phone Kelly KC, Ora Ariza Primary Care Physician Encounter [facility] Date(s): 08/23/20 - 09/22/[address] [address]- Allergies, Adverse Reactions, Alerts No Known Medication Allergies Immunizations Given and Recorded Vaccine Date Status Refusal Reason Measles/Mumps/Rubella Virus Vaccine 1 09/09/20 Giv en influenza virus vaccine, inactivated 01/15/19 Give n influenza virus vaccine, inactivated 05/17/17 Give n influenza virus vaccine, inactivated 08/02/15 Give n tetanus/diphtheria/pertussis, acel(Tdap) 08/02/15 Given 1Result Comment: diluent lot # [id number] exp 01/17/22 Medications cetirizine 10 mg oral [...] Refills, Soft Stop, 08/19/20 18:22:00 EDT, Tablet, [facility]/pharmacy #[id number], Partial fill upon patient request if the prescription is for a schedule II opioid... Start Date: 08/19/20 Status: Ordered Problem List Condition Effective Dates Status Health Status Inform ant Obesity (BMI 35.0-39.9 witho ut comorbidity)(Confirmed) Active Carpal tunnel syndrome(Confirmed) Active
--- OUTSIDE RECORDS SUMMARY | 2023-07-12 08:05 | XMS_ITS | Continuity of Care Document ---
Author Organization [facility] Address [address] [place] [address]- Care Team Providers Care Supervisor Conditioning Yard Name Role Phone Kelly KC, Ora Ariza Primary Care Physician En[place] [facility] Date(s): 05/10/23 - 06/09/[address] [address]- Allergies, Adverse Reactions, Alerts No Known Medication Allergies Immunizations Given and Recorded Vaccine Date Status Refusal Reason influenza virus vaccine, inactivated 02/08/22 Give n influenza virus vaccine, inactivated 01/15/19 Give n influenza virus vaccine, inactivated 05/17/17 Give n influenza virus vaccine, inactivated 08/02/15 Give n [id number] 12y+ bivalent booster vax 02/08/22 Given SARS-CoV-2 mRNA (erfpakm-ohhi-asizk) vax 05/04/21 Recorded SARS-CoV-2 mRNA (iugxntm-rjsh-fnupw) vax 04/13/21 Recorded Measles/Mumps/Rubella Virus Vaccine 1 09/09/20 Giv en tetanus/diphtheria/pertussis, acel(Tdap) 08/02/15 Given 1Result Comment: diluent lot # [id number] exp 01/17/22 Medications Aerochamber See Instructions, # 1 each, Maintenance, to be used with asthmanex, 03/12/23 9:13:00 EST, Supply, 156, cm, 03/12/23 8:53:00 EST, Height, 99.4, kg, 03/04/23 22:47:00 EST, Dry Weight Start Date: 03/12/23 Status: Ordered escitalopram 10 mg oral tablet 1 tablet = 10 mg, By Mouth, Daily, # 30 tablet, 11 Refills, Maintenance, 05/01/23 17:48:00 EST, Tablet, [facility]/pharmacy #1130, Partial fill upon patient [...] Date: 05/01/23 Stop Date: 05/11/23 Status: Ordered mometasone 100 mcg/inh inhalation aerosol 2 puffs, Inhalation, 2 times a day, rinse mouth and throat after use, # 13 Gm, 11 Refills, Maintenance, 03/12/23 9:12:00 EST, Aerosol, [facility]/pharmacy #[id number], Partial fill upon patient [...] Team Personnel Name: Ora Mendoza MD Position: [facility] Resident Member Role: PCP Address: Address: [address] [place] [address] [place] [address]- Care Team Related Persons Name: ABY OBREGON Address: [place] [address] Name: JACEK TURNER Address: home [address] [place] [address] Name: LATASHA TURNER Address: home [address] [place] [address]
--- OUTSIDE RECORDS SUMMARY | 2023-07-12 08:05 | XMS_ITS | Continuity of Care Document ---
Author Organization [facility] Address [address], [address], [address] [place] [address]- Care Team Providers Care National Investigative Producer Name Role Phone Chencho Pina MD Primary Care Physician [place] [facility] [place]s): 07/27/19 - 08/26/19 [facility] [address], [address] [place] [address]- [facility] Attending Physician: AdmLucy william Admitting Physician: AdmtrLucy Referring Physician: Admtr, Ar8 Allergies, Adverse Reactions, [...] 10:31:00 EST, Route to Pharmacy Electronically, [facility]/pharmacy #[id number], 154.1, cm, 05/25/19 9:56:00 EST, Height Start [...]
--- OUTSIDE RECORDS SUMMARY | 2023-07-12 08:05 | XMS_ITS | Continuity of Care Document ---
Author Organization [facility] Address [address] [place] [address]- Care Team Providers Care Corporate Development Manager Name Role Phone Kelly KC, Ora rAiza Primary Care Physician Encounter [facility] Date(s): 05/03/21 - 06/28/[address] [address]- Attending Physician: Meliza Chavez MD, I Admitting Physician: Meliza Chavez MD, I Referring Physician: Rylee Silvestre MD Allergies, Adverse Reactions, Alerts No Known Medication Allergies Immunizations Given and Recorded Vaccine Date Status Refusal Reason SARS-CoV-2 mRNA (eopdsvf-hqfd-ulmiu) vax 05/04/21 Recorded SARS-CoV-2 mRNA (shxfwpy-fnux-vucht) vax 04/13/21 Recorded Measles/Mumps/Rubella Virus Vaccine 1 09/09/20 Giv en influenza virus vaccine, inactivated 01/15/19 Give n influenza virus vaccine, inactivated 05/17/17 Give n influenza virus vaccine, inactivated 08/02/15 Give n tetanus/diphtheria/pertussis, acel(Tdap) 08/02/15 Given 1Result Comment: diluent lot # [id number] exp 01/17/22 Medications cetirizine 10 mg oral tablet 1 tablet = 10 mg, By Mouth, Daily, # 90 tablet, 1 Refills, Maintenance, 06/30/18 13:06:48 EDT, Tablet Start Date: 06/30/18 Stop Date: 07/30/18 Status: Ordered ibuprofen 600 mg oral tablet 1, tablet, By Mouth, 3 times a day, PRN, # 90 tablet, Refills 0, NEEDED FOR HEADACHE, Route to Pharmacy Electronically, [facility], 154.1, cm, 03/09/21 11:54:00 EST, Height, 93.1, [...] EST, Tablet, [facility]/pharmacy #[id number], Partial fill upon patient request if the prescription is for a schedule II opioid... Start Date: 04/14/21 Stop Date: 10/11/21 Status: Ordered Problem List Condition Effective Dates Status Health Status Inform ant Obesity (BMI 35.0-39.9 witho ut comorbidity)(Confirmed) Active Carpal tunnel syndrome(Confirmed) Active Migraine(Confirmed) Active Obese class II(Confirmed) Active
--- OUTSIDE RECORDS SUMMARY | 2023-07-12 08:05 | XMS_ITS | Continuity of Care Document ---
Author Organization [facility] Address [address] [place] [address]- Care Team Providers Care Roll Bucker Name Role Phone Ora Mendoza MD Primary Care Physician Encounter [facility] [place] Date(s): 08/03/21 - 09/07/[address] [address]- Attending Physician: Not on Staff, Attending MD Referring Physician: Ora Mendoza MD Allergies, Adverse Reactions, Alerts No Known Medication Allergies Immunizations Given and Recorded Vaccine Date Status Refusal Reason SARS-CoV-2 mRNA (kxsifny-pfmb-nrjcg) vax 05/04/21 Recorded SARS-CoV-2 mRNA (iowfnse-nddo-ezwfw) vax 04/13/21 Recorded Measles/Mumps/Rubella Virus Vaccine 1 09/09/20 Giv en influenza virus vaccine, inactivated 01/15/19 Give n influenza virus vaccine, inactivated 05/17/17 Give n influenza virus vaccine, inactivated 08/02/15 Give n tetanus/diphtheria/pertussis, acel(Tdap) 08/02/15 Given 1Result Comment: diluent lot # [id number] exp 01/17/22 Medications cetirizine 10 mg oral [...] NEEDED FOR HEADACHE, Route to Pharmacy Electronically, [facility] 187[facility], 154.1, cm, 03/09/21 11:54:00 EST, Height, 93.1, [...] 5 Refills, Maintenance, 04/14/21 18:22:00 EST, Tablet, [facility]/pharmacy #[id number], Partial fill upon patient request if the prescription is for a schedule II opioid... Start Date: 04/14/21 Stop Date: 10/11/21 Status: Ordered Problem List Condition Effective Dates Status Health Status Inform ant Obesity (BMI 35.0-39.9 witho ut comorbidity)(Confirmed) Active Carpal tunnel syndrome(Confirmed) Active Migraine(Confirmed) Active Nasal congestion(Confirmed) Active Obese class II(Confirmed) Active
--- OUTSIDE RECORDS SUMMARY | 2023-07-12 08:05 | XMS_ITS | Continuity of Care Document ---
Author Organization [facility] Address [address] [place] [address]- Care Team Providers Care Transfer Machine Operator Name Role Phone Kelly KC, Ora Ariza Primary Care Physician Encounter [facility] Date(s): 08/19/20 - 09/18/[address] [address]- Allergies, Adverse Reactions, Alerts No Known Medication Allergies Immunizations Given and Recorded Vaccine Date Status Refusal Reason Measles/Mumps/Rubella Virus Vaccine 1 09/09/20 Giv en influenza virus vaccine, inactivated 01/15/19 Give n influenza virus vaccine, inactivated 05/17/17 Give n influenza virus vaccine, inactivated 08/02/15 Give n tetanus/diphtheria/pertussis, acel(Tdap) 08/02/15 Given 1Result Comment: diluent lot # [id number] exp 01/17/22 Medications cetirizine 10 mg oral [...] Refills, Soft Stop, 08/19/20 18:22:00 EDT, Tablet, [facility]/pharmacy #[id number], Partial fill upon patient request if the prescription is for a schedule II opioid... Start Date: 08/19/20 Status: Ordered Problem List Condition Effective Dates Status Health Status Inform ant Obesity (BMI 35.0-39.9 witho ut comorbidity)(Confirmed) Active Carpal tunnel syndrome(Confirmed) Active
--- OUTSIDE RECORDS SUMMARY | 2023-07-12 08:05 | XMS_ITS | Continuity of Care Document ---
Author Organization [facility] Address [address] [place] [address]- Care Team Providers Care Manager Requirements Name Role Phone Ora Mendoza MD Primary [facility] Phys[id number] Date[facility] - 05/08/[address] [address]- Attending Physician: Harman Garsia MD Admitting Physician: [...] 08/02/15 Given 1Result Comment: diluent lot # [id number] exp 01/17/22 Medications cetirizine 10 mg oral tablet 1 tablet = 10 mg, By Mouth, Daily, # 90 tablet, 1 Refills, Maintenance, 06/30/18 13:06:48 EDT, Tablet Start Date: 06/30/18 Stop Date: 07/30/18 Status: Ordered ibuprofen 600 mg oral tablet 1, tablet, By Mouth, 3 times a day, PRN, # 90 tablet, Refills 0, NEEDED FOR HEADACHE, Route to Pharmacy Electronically, [facility], 154.1, cm, 03/09/21 11:54:00 EST, Height, 93.1, [...] 5 Refills, Maintenance, 04/14/21 18:22:00 EST, Tablet, [facility]/pharmacy #[id number], Partial fill upon patient request if the prescription is for a schedule II opioid... Start Date: 04/14/21 Stop Date: 10/11/21 Status: Ordered Problem List Condition Effective Dates Status Health Status Inform ant Obesity (BMI 35.0-39.9 witho ut comorbidity)(Confirmed) Active Carpal tunnel syndrome(Confirmed) Active Obese class II(Confirmed) Active
--- OUTSIDE RECORDS SUMMARY | 2023-07-12 08:05 | XMS_ITS | Continuity of Care Document ---
Author Organization [facility] Address [address] [place] [address]- Care Team Providers Care Saddle Mechanic Name Role Phone Kelly KC, Ora Ariza Primary Care Physician Encounter [facility] Date(s): 08/18/20 - 09/17/[address] [address]- Allergies, Adverse Reactions, Alerts No Known Medication Allergies Immunizations Given and Recorded Vaccine Date Status Refusal Reason Measles/Mumps/Rubella Virus Vaccine 1 09/09/20 Giv en influenza virus vaccine, inactivated 01/15/19 Give n influenza virus vaccine, inactivated 05/17/17 Give n influenza virus vaccine, inactivated 08/02/15 Give n tetanus/diphtheria/pertussis, acel(Tdap) 08/02/15 Given 1Result Comment: diluent lot # [id number] exp 01/17/22 Medications cetirizine 10 mg oral [...] Refills, Soft Stop, 08/19/20 18:22:00 EDT, Tablet, [facility]/pharmacy #9920, Partial fill upon patient request if the prescription is for a schedule II opioid... Start Date: 08/19/20 Status: Ordered Problem List Condition Effective Dates Status Health Status Inform ant Obesity (BMI 35.0-39.9 witho ut comorbidity)(Confirmed) Active Carpal tunnel syndrome(Confirmed) Active
--- OUTSIDE RECORDS SUMMARY | 2023-07-12 08:05 | XMS_ITS | Continuity of Care Document ---
Author Organization [facility] Address [address] [place] [address]- Care Team Providers Care Tax Manager Cpa Name Role Phone Kelly KC, Ora Ariza Primary Care Physician Encounter [facility] [place] Date(s): 05/01/23 - 06/22/[address] [address]- Attending Physician: Not on Staff, Attending MD Allergies, Adverse Reactions, Alerts No Known Medication Allergies Immunizations Given and Recorded Vaccine Date Status Refusal Reason influenza virus vaccine, inactivated 02/08/22 Give n influenza virus vaccine, inactivated 01/15/19 Give n influenza virus vaccine, inactivated 05/17/17 Give n influenza virus vaccine, inactivated 08/02/15 Give n [id number] 12y+ bivalent booster vax 02/08/22 Given SARS-CoV-2 mRNA (roksofn-gegx-tynys) vax 05/04/21 Recorded SARS-CoV-2 mRNA (nvfgnoz-sjsa-edkvg) vax 04/13/21 Recorded Measles/Mumps/Rubella Virus Vaccine 1 09/09/20 Giv en tetanus/diphtheria/pertussis, acel(Tdap) 08/02/15 Given 1Result Comment: diluent lot # [id number] exp 01/17/22 Medications Aerochamber See Instructions, # 1 each, Maintenance, to be used with asthmanex, 03/12/23 9:13:00 EST, Supply, 156, cm, 03/12/23 8:53:00 EST, Height, 99.4, kg, 03/04/23 22:47:00 EST, Dry Weight Start Date: 03/12/23 Status: Ordered escitalopram 10 mg oral tablet 1 tablet = 10 mg, By Mouth, Daily, # 30 tablet, 11 Refills, Maintenance, 05/01/23 17:48:00 EST, Tablet, [facility]/pharmacy #[id number], Partial fill upon patient request [...] 11 Refills, Maintenance, 03/12/23 9:12:00 EST, Aerosol, [facility]/pharmacy #[id number], Partial fill upon patient request [...] S Resident Member Role: PCP Address: Address: [address] [place] [address]- Care Team Related Persons Name: ABY OBREGON Address: [place] [address] Name: JACEK TURNER Address: home [address] [place] [address] Name: LATASHA TURNER Address: home [address] [place] [address]
--- OUTSIDE RECORDS SUMMARY | 2023-07-12 08:05 | XMS_ITS | Continuity of Care Document ---
Author Organization [facility] Address [address] [place] [address]- Care Team Providers Care Speech Assistant Name Role Phone Chencho Pina MD Primary Care Physician [place] [facility] [place] Date(s): 04/28/19 - 05/08/[address] [address]- [facility] Attending Physician: Admnataliia, [id number] Admitting Physician: Admtr, Herve8 Referring Physician: Admtr, [...]
--- OUTSIDE RECORDS SUMMARY | 2023-07-12 08:06 | XMS_ITS | Continuity of Care Document ---
Author Organization [facility] Address [address] [place] [address]- Care Team Providers Care Trauma Manager Name Role Phone Ora Mendoza MD Primary Care Physician Encounter [facility] [place] Date(s): 05/01/22 - 06/01/[address] [address]- Attending Physician: Tom Thompson MD Admitting Physician: Tom Thompson MD Allergies, Adverse Reactions, Alerts No Known Medication Allergies Immunizations Given and Recorded Vaccine Date Status Refusal Reason influenza virus vaccine, inactivated 02/08/22 Give n influenza virus vaccine, inactivated 01/15/19 Give n influenza virus vaccine, inactivated 05/17/17 Give n influenza virus vaccine, inactivated 08/02/15 Give n [id number] 12y+ bivalent booster vax 02/08/22 Given SARS-CoV-2 mRNA (bsrpqen-dyqh-kczha) vax 05/04/21 Recorded SARS-CoV-2 mRNA (szmzcch-vncl-vizva) vax 04/13/21 Recorded Measles/Mumps/Rubella Virus Vaccine 1 09/09/20 Giv en tetanus/diphtheria/pertussis, acel(Tdap) 08/02/15 Given 1Result Comment: diluent lot # [id number] exp 01/17/22 Medications ibuprofen 600 mg oral tablet 1, tablet, By Mouth, 2 times a day, PRN, # 60 tablet, Refills 1, Tot. Refills 1, Maintenance, Pain , Moderate, 04/24/22 8:24:00 EST, Route to Pharmacy Electronically, [facility]/pharmacy #[id number], 154.1, cm, 02/08/22 15:06:00 EST, [...] must be taken daily., # 30 tablet, 11 Refills, Maintenance, 04/24/22 8:24:00 EST, Tablet, [facility]/pharmacy #[id number], Partial fill upon patient request if the prescription is for a schedule II opioid... Start Date: 04/24/22 Stop Date: 04/19/23 Status: Ordered Problem List Condition Confirmation Course Effective Dates Status Health St atus Informant Obesity (BMI 35.0-39.9 without comorbidity) Confirmed Active Carpal tunnel syndrome Confirmed Active Dysuria Confirmed Active Migraine Confirmed Active Nasal congestion Confirmed Active Obese class II Confirmed Active Patient Care team information Care Team Personnel Name: Ora Mendoza MD Position: S Resident Member Role: PCP Address: Address: [address] [place] [address]- Care Team Related Persons Name: ABY OBREGON Name: JACEK TURNER Address: home [address] [place] [address] Name: LATASHA TURNER Address: home [address] [place] [address]
--- OUTSIDE RECORDS SUMMARY | 2023-07-12 08:06 | XMS_ITS | Continuity of Care Document ---
Author Organization [facility] Address [address] [place] [address]- Care Team Providers Care Glass Furnace Operator Name Role Phone Ora Mendoza MD Primary Care Physician Encounter [facility] [place] Date(s): 06/19/21 - 08/06/[address] [address]- Attending Physician: Not on Staff, Attending MD Allergies, Adverse Reactions, Alerts No Known Medication Allergies Immunizations Given and Recorded Vaccine Date Status Refusal Reason SARS-CoV-2 mRNA (nrohukz-tklr-frehn) vax 05/04/21 Recorded SARS-CoV-2 mRNA (wdgfqea-nawo-pwqkm) vax 04/13/21 Recorded Measles/Mumps/Rubella Virus Vaccine 1 09/09/20 Giv en influenza virus vaccine, inactivated 01/15/19 Give n influenza virus vaccine, inactivated 05/17/17 Give n influenza virus vaccine, inactivated 08/02/15 Give n tetanus/diphtheria/pertussis, acel(Tdap) 08/02/15 Given 1Result Comment: diluent lot # [id number] exp 01/17/22 Medications cetirizine 10 mg oral [...] NEEDED FOR HEADACHE, Route to Pharmacy Electronically, [id number], 154.1, cm, 03/09/21 11:54:00 EST, Height, 93.1, [...] 5 Refills, Maintenance, 04/14/21 18:22:00 EST, Tablet, [facility]/pharmacy #[id number], Partial fill upon patient request if the prescription is for a schedule II opioid... Start Date: 04/14/21 Stop Date: 10/11/21 Status: Ordered Problem List Condition Effective Dates Status Health Status Inform ant Obesity (BMI 35.0-39.9 witho ut comorbidity)(Confirmed) Active Carpal tunnel syndrome(Confirmed) Active Migraine(Confirmed) Active Nasal congestion(Confirmed) Active Obese class II(Confirmed) Active
--- OUTSIDE RECORDS SUMMARY | 2023-07-12 08:06 | XMS_ITS | Continuity of Care Document ---
Author Organization [facility] Address [address], [address] Floor, [address] [place] [address]- Care Team Providers Care Mailroom Personnel Name Role Phone Chencho Pina MD Primary Care Physician [place] [facility] [place] 07/27/19 - 08/03/19 [facility] [address], [address], [address] [place] [address]- [facility] Attending Physician: Steven Hidalgo MD Referring Physician: [...] 05/25/19 10:31:00 EST, Route to Pharmacy Electronically, [facility]/pharmacy #[id number], 154.1, cm, 05/25/19 9:56:00 EST, [...]
--- OUTSIDE RECORDS SUMMARY | 2023-07-12 08:06 | XMS_ITS | Continuity of Care Document ---
Author Organization [facility] Address [address] [place] [address]- Care Team Providers Care Software Sales Representative Name Role Phone Kelly KC, Ora Ariza Primary Care Physician En[place] [facility] [place] [id number] Date(s): 03/11/23 - 05/15/[address] [address] Attending Physician: Jose Villafuerte MD Admitting Physician: Jose Villafuerte MD Referring Physician: Ryan LAMB, Nova Murphy Allergies, Adverse Reactions, Alerts No Known Medication Allergies Immunizations Given and Recorded Vaccine Date Status Refusal Reason influenza virus vaccine, inactivated 02/08/22 Give n influenza virus vaccine, inactivated 01/15/19 Give n influenza virus vaccine, inactivated 05/17/17 Give n influenza virus vaccine, inactivated 08/02/15 Give n [id number]-1fYWI 12y+ bivalent booster vax 02/08/22 Given SARS-CoV-2 mRNA (irwurxr-gxzf-ymvlx) vax 05/04/21 Recorded SARS-CoV-2 mRNA (zghsmtz-rosz-oijgu) vax 04/13/21 Recorded Measles/Mumps/Rubella Virus Vaccine 1 09/09/20 Giv en tetanus/diphtheria/pertussis, acel(Tdap) 08/02/15 Given 1Result Comment: diluent lot # [id number] exp 01/17/22 Medications Aerochamber See Instructions, # 1 each, Maintenance, to be used with asthmanex, 03/12/23 9:13:00 EST, Supply, 156, cm, 03/12/23 8:53:00 EST, Height, 99.4, kg, 03/04/23 22:47:00 EST, Dry Weight Start Date: 03/12/23 Status: Ordered escitalopram 10 mg oral tablet 1 tablet = 10 mg, By Mouth, Daily, # 30 tablet, 11 Refills, Maintenance, 05/01/23 17:48:00 EST, Tablet, [facility]/pharmacy #[id number], Partial fill upon patient [...] 05/02/23 10:29:00 EST, Route to Pharmacy Electronically, [facility]/pharmacy #[id number], Partial fill upon patient req... Start Date: 05/02/23 Stop Date: 05/30/23 Status: Ordered mometasone 100 mcg/inh inhalation aerosol 2 puffs, Inhalation, 2 times a day, rinse mouth and throat after use, # 13 Gm, 11 Refills, Maintenance, 03/12/23 9:12:00 EST, Aerosol, [facility]/pharmacy #[id number], Partial fill upon patient [...] mg) on 03/11/23, # 2... Start Date: 12/11/23 Status: Ordered Ventolin HFA 108 mcg/inh inhalation [...] Team Personnel Name: Ora Mendoza MD Position: [facility] Resident Member Role: PCP Address: Address: [address] [place] [address]- Care Team Related Persons Name: ABY OBREGON Address: [place] [address] Name: JACEK TURNER Address: home [address] [place] [address] Name: LATASHA TURNER Address: home [address] [facility] [facility] [facility] [facility] [address] [place] [address]
--- OUTSIDE RECORDS SUMMARY | 2023-07-12 08:06 | XMS_ITS | Continuity of Care Document ---
Author Organization [facility] Address [address] [place] [address]- Care Team Providers Care Iphone Developer Name Role Phone Kelly KC, Ora Ariza Primary Care Physician [place] [facility] [place] 09/08/20 - 10/08/[address] [address] Allergies, Adverse Reactions, Alerts No Known Medication Allergies Immunizations Given and Recorded Vaccine Date Status Refusal Reason Measles/Mumps/Rubella Virus Vaccine 1 09/09/20 Giv en influenza virus vaccine, inactivated 01/15/19 Give n influenza virus vaccine, inactivated 05/17/17 Give n influenza virus vaccine, inactivated 08/02/15 Give n tetanus/diphtheria/pertussis, acel(Tdap) 08/02/15 Given 1Result Comment: diluent lot # [id number] exp 01/17/22 Medications cetirizine 10 mg oral [...] Soft Stop, 08/19/20 18:22:00 EDT, Tablet, [facility]acy [id number], Partial fill upon patient request if the prescription is for a schedule II opioid... Start Date: 08/19/20 Status: Ordered Problem List Condition Effective Dates Status Health Status Inform ant Obesity (BMI 35.0-39.9 witho ut comorbidity)(Confirmed) Active Carpal tunnel syndrome(Confirmed) Active
--- OUTSIDE RECORDS SUMMARY | 2023-07-12 08:06 | XMS_ITS | Continuity of Care Document ---
Author Organization [facility] Address [address] [place] [address]- Care Team Providers Care Complaint Supervisor Name Role Phone Chencho Pina MD Primary Care Physician [place] [facility] [place] Date(s[place] 07/06/19 - 08/08/[address] [address] [place] Attending Physician: Ladan Thibodeaux MD Referring Physician: Red AGRICULTURAL EXTENSION EDUCATOR, Jessica Allergies, Adverse Reactions, Alerts No Known [...]
--- OUTSIDE RECORDS SUMMARY | 2023-07-12 08:06 | XMS_ITS | Continuity of Care Document ---
Author Organization [facility] Address [address] [place] [address]- Care Team Providers Care Underground Conduit Installer Name Role Phone Chencho Pina MD Primary Care Physician ( [phone] Encounter [facility] [place] Date(s): 08/13/19 - 09/13/[address] [address]- [facility] Attending Physician: Ladan Thibodeaux MD Allergies, Adverse [...] 05/25/19 10:31:00 EST, Route to Pharmacy Electronically, [facility]/pharmacy #[id number], 154.1, cm, 05/25/19 [...]
--- OUTSIDE RECORDS SUMMARY | 2023-07-12 08:06 | XMS_ITS | Continuity of Care Document ---
Author Organization [facility] Address [address] [place] [address]- Care Team Providers Care Car Groomer Name Role Phone Ora Mendoza MD Primary Care Physician [place] [facility] [place] Date(s): 10/11/22 - 11/15/[address] [address]- Attending Physician: Not on Staff, Attending MD Allergies, Adverse Reactions, Alerts No Known Medication Allergies Immunizations Given and Recorded Vaccine Date Status Refusal Reason influenza virus vaccine, inactivated 02/08/22 Give n influenza virus vaccine, inactivated 01/15/19 Give n influenza virus vaccine, inactivated 05/17/17 Give n influenza virus vaccine, inactivated 08/02/15 Give n [id number]-[id number] 12y+ bivalent booster vax 02/08/22 Given SARS-CoV-2 mRNA (ibshpfy-xceh-ztwpb) vax 05/04/21 Recorded SARS-CoV-2 mRNA (rciddjw-yrnf-ornvl) vax 04/13/21 Recorded Measles/Mumps/Rubella Virus Vaccine 1 09/09/20 Giv en tetanus/diphtheria/pertussis, acel(Tdap) 08/02/15 Given 1Result Comment: diluent lot # [id number] exp 01/17/22 Medications ibuprofen 600 mg oral tablet 1, tablet, By Mouth, 2 times a day, PRN, # 60 tablet, Refills 1, Tot. Refills 1, Maintenance, Pain , Moderate, 04/24/22 8:24:00 EST, Route to Pharmacy Electronically, [facility]/pharmacy #[id number], 154.1, cm, 02/08/22 15:06:00 EST, [...] S Resident Member Role: PCP Address: Address: [address] [place] [address]- Care Team Related Persons Name: ABY OBREGON Name: JACEK TURNER Address: home [address] [place] [address] Name: LATASHA TURNER Address: home [address] [place] [address]
--- OUTSIDE RECORDS SUMMARY | 2023-07-12 08:06 | XMS_ITS | Continuity of Care Document ---
Author Organization [facility] Address [address] [place] [address]- Care Team Providers Care Vulcanizer Rubber Plate Name Role Phone Kelly KC, Ora Ariza Primary Care Physician Encounter [facility] [place] Date(s): 04/23/22 - 05/23/[address] [address]- Allergies, Adverse Reactions, Alerts No Known Medication Allergies Immunizations Given and Recorded Vaccine Date Status Refusal Reason influenza virus vaccine, inactivated 02/08/22 Give n influenza virus vaccine, inactivated 01/15/19 Give n influenza virus vaccine, inactivated 05/17/17 Give n influenza virus vaccine, inactivated 08/02/15 Give n [id number]-XsJ-1fUZG 12y+ bivalent booster vax 02/08/22 Given SARS-CoV-2 mRNA (rovfkfq-zkek-vcxyb) vax 05/04/21 Recorded SARS-CoV-2 mRNA (uicivla-uucv-frwpt) vax 04/13/21 Recorded Measles/Mumps/Rubella Virus Vaccine 1 09/09/20 Giv en tetanus/diphtheria/pertussis, acel(Tdap) 08/02/15 Given 1Result Comment: diluent lot # [id number] exp 01/17/22 Medications ibuprofen 600 mg oral tablet 1, tablet, By Mouth, 2 times a day, PRN, # 60 tablet, Refills 1, Tot. Refills 1, Maintenance, Pain , Moderate, 04/24/22 8:24:00 EST, Route to Pharmacy Electronically, [facility]/pharmacy #[id number], 154.1, cm, 02/08/22 15:06:00 [...] 11 Refills, Maintenance, 04/24/22 8:24:00 EST, Tablet, [facility]/pharmacy #[id number], Partial fill upon patient request if the [...] S Resident Member Role: PCP Address: Address: [address] [place] [address]- Care Team Related Persons Name: ABY OBREGON Name: JACEK TURNER Address: home [address] [place] [address] Name: LATASHA TURNER Address: home [address] [place] [address]
--- OUTSIDE RECORDS SUMMARY | 2023-07-12 08:06 | XMS_ITS | Continuity of Care Document ---
Author Organization [facility] Address [address] [place] [address]- Care Team Providers Care Educator Senior Clinical Name Role Phone Kelly KC, Ora Ariza Primary Care Physician Encounter [facility] [place] Date(s): 08/31/20 - 10/23/[address] [address]- Attending Physician: Claudia Fernandez CNM Admitting Physician: Claudia Fernandez CNM Allergies, Adverse Reactions, Alerts No Known Medication Allergies Immunizations Given and Recorded Vaccine Date Status Refusal Reason Measles/Mumps/Rubella Virus Vaccine 1 09/09/20 Giv en influenza virus vaccine, inactivated 01/15/19 Give n influenza virus vaccine, inactivated 05/17/17 Give n influenza virus vaccine, inactivated 08/02/15 Give n tetanus/diphtheria/pertussis, acel(Tdap) 08/02/15 Given 1Result Comment: diluent lot # [id number] exp 01/17/22 Medications cetirizine 10 mg oral [...] Soft Stop, 08/19/20 18:22:00 EDT, Tablet, [id number], Partial fill upon patient request if the prescription is for a schedule II opioid... Start Date: 08/19/20 Status: Ordered Problem List Condition Effective Dates Status Health Status Inform ant Obesity (BMI 35.0-39.9 witho ut comorbidity)(Confirmed) Active Carpal tunnel syndrome(Confirmed) Active
--- OUTSIDE RECORDS SUMMARY | 2023-07-12 08:06 | XMS_ITS | Continuity of Care Document ---
Author Organization [facility] Address [address] [place] [address]- Care Team Providers Care Machine Printer Hose Name Role Phone Ora Mendoza MD Primary Care Physician Encounter [facility] [place] Date(s): 11/23/21 - 12/23/[address] [address]- Attending Physician: Admtr, Lucy Admitting Physician: AdmtrLucy Referring Physician: Admtr, Ar8 Allergies, Adverse Reactions, Alerts No Known Medication Allergies Immunizations Given and Recorded Vaccine Date Status Refusal Reason SARS-CoV-2 mRNA (gogwyjf-duny-myghx) vax 05/04/21 Recorded SARS-CoV-2 mRNA (uixvldf-itdv-ngzgr) vax 04/13/21 Recorded Measles/Mumps/Rubella Virus Vaccine 1 09/09/20 Giv en influenza virus vaccine, inactivated 01/15/19 Give n influenza virus vaccine, inactivated 05/17/17 Give n influenza virus vaccine, inactivated 08/02/15 Give n tetanus/diphtheria/pertussis, acel(Tdap) 08/02/15 Given 1Result Comment: diluent lot # [id number] exp 01/17/22 Medications cetirizine 10 mg oral [...] 11/09/21 12:18:00 EDT, Route to Pharmacy Electronically, [facility]/pharmacy #[id number], 154.1, cm, 03/09/21 11:54:00 EST, Height [...] 5 Refills, Maintenance, 04/14/21 18:22:00 EST, Tablet, [facility]/pharmacy #[id number], Partial fill upon patient request if [...] Personnel Name: Ora Mendoza MD Address: Address: [address] [place] [id number]
--- OUTSIDE RECORDS SUMMARY | 2023-07-12 08:06 | XMS_ITS | Continuity of Care Document ---
Author Organization [facility] Address [address] [place] [address]- Care Team Providers Care Customer Experience Retail Clerk Name Role Phone Kelly KC, Ora Ariza Primary Care Physician Encounter [facility] [place] Date(s): 07/13/21 - 08/12/[address] [address]- Allergies, Adverse Reactions, Alerts No Known Medication Allergies Immunizations Given and Recorded Vaccine Date Status Refusal Reason SARS-CoV-2 mRNA (hijnvmm-obnz-vqiec) vax 05/04/21 Recorded SARS-CoV-2 mRNA (uqwzmfq-ompi-glvgg) vax 04/13/21 Recorded Measles/Mumps/Rubella Virus Vaccine 1 09/09/20 Giv en influenza virus vaccine, inactivated 01/15/19 Give n influenza virus vaccine, inactivated 05/17/17 Give n influenza virus vaccine, inactivated 08/02/15 Give n tetanus/diphtheria/pertussis, acel(Tdap) 08/02/15 Given 1Result Comment: diluent lot # [id number] exp 01/17/22 Medications cetirizine 10 mg oral [...] NEEDED FOR HEADACHE, Route to Pharmacy Electronically, [facility] 54145, 154.1, cm, 03/09/21 11:54:00 EST, Height, 93.1, [...] 5 Refills, Maintenance, 04/14/21 18:22:00 EST, Tablet, [facility]/pharmacy #[id number], Partial fill upon patient request if the prescription is for a schedule II opioid... Start Date: 04/14/21 Stop Date: 10/11/21 Status: Ordered Problem List Condition Effective Dates Status Health Status Inform ant Obesity (BMI 35.0-39.9 witho ut comorbidity)(Confirmed) Active Carpal tunnel syndrome(Confirmed) Active Migraine(Confirmed) Active Nasal congestion(Confirmed) Active Obese class II(Confirmed) Active
--- OUTSIDE RECORDS SUMMARY | 2023-07-12 08:06 | XMS_ITS | Continuity of Care Document ---
Author Organization [facility] Address [address] [place] [address]- Care Team Providers Care Apparel Stock Checker Name Role Phone Kelly KC, Ora Ariza Primary Care Physician Encounter [facility] Date(s): 11/19/19 - 12/19/[address] [address]- [facility] Allergies, Adverse Reactions, Alerts No Known Medication [...] 05/25/19 10:31:00 EST, Route to Pharmacy Electronically, [facility]/pharmacy #[id number], 154.1, cm, 05/25/19 9:56:00 EST, [...]
--- OUTSIDE RECORDS SUMMARY | 2023-07-12 08:06 | XMS_ITS | Continuity of Care Document ---
Author Organization [facility] Address [address] [place] [address]- Care Team Providers Care Wheel Alignment Mechanic Name Role Phone Ora Mendoza MD Primary Care Physician [place] [facility] [place] 04/23/22 - 06/08/[address] [address]- Attending Physician: Reina Farrell DO Admitting Physician: Reina Farrell DO Referring Physician: Ora Mendoza MD Allergies, Adverse Reactions, Alerts No Known Medication Allergies Immunizations Given and Recorded Vaccine Date Status Refusal Reason influenza virus vaccine, inactivated 02/08/22 Give n influenza virus vaccine, inactivated 01/15/19 Give n influenza virus vaccine, inactivated 05/17/17 Give n influenza virus vaccine, inactivated 08/02/15 Give n JDXD-DfX-6vQGD 12y+ bivalent booster vax 02/08/22 Given SARS-CoV-2 mRNA (bjlqkdf-yqxx-erwgb) vax 05/04/21 Recorded SARS-CoV-2 mRNA (idrjjxw-xrsm-vspyy) vax 04/13/21 Recorded Measles/Mumps/Rubella Virus Vaccine 1 09/09/20 Giv en tetanus/diphtheria/pertussis, acel(Tdap) 08/02/15 Given 1Result Comment: diluent lot # [id number] exp 01/17/22 Medications ibuprofen 600 mg oral tablet 1, tablet, By Mouth, 2 times a day, PRN, # 60 tablet, Refills 1, Tot. Refills 1, Maintenance, Pain , Moderate, 04/24/22 8:24:00 EST, Route to Pharmacy Electronically, [facility]/pharmacy #[id number], 154.1, cm, 02/08/22 15:06:00 [...] 11 Refills, Maintenance, 04/24/22 8:24:00 EST, Tablet, [id number], Partial fill upon patient request if [...] S Resident Member Role: PCP Address: Address: [address] [place] [address]- Care Team Related Persons Name: ABY OBREGON Name: JACEK TURNER Address: home [address] [facility] [place] [address] Name: LATASHA TURNER Address: home [address] [facility] [address] [facility] [address] [place] [address]
--- OUTSIDE RECORDS SUMMARY | 2023-07-12 08:06 | XMS_ITS | Continuity of Care Document ---
Author Organization [facility] Address [address] [place] [address]- Care Team Providers Care Pile Driving Technician Name Role Phone Ora Mendoza MD Primary Care Physician Encounter [facility] Date(s): 09/24/22 - 10/24/22 [facility] [address] [address] Attending Physician: Admtr, [id number] Admitting Physician: Admtr, Ar8 Referring Physician: Admtr, Ar8 Allergies, Adverse Reactions, Alerts No Known Medication Allergies Immunizations Given and Recorded Vaccine Date Status Refusal Reason influenza virus vaccine, inactivated 02/08/22 Give n influenza virus vaccine, inactivated 01/15/19 Give n influenza virus vaccine, inactivated 05/17/17 Give n influenza virus vaccine, inactivated 08/02/15 Give n [id number]-2dUVB 12y+ bivalent booster vax 02/08/22 Given SARS-CoV-2 mRNA (wvweldd-naor-rnrvb) vax 05/04/21 Recorded SARS-CoV-2 mRNA (gfmmwad-dpmj-hzdnw) vax 04/13/21 Recorded Measles/Mumps/Rubella Virus Vaccine 1 09/09/20 Giv en tetanus/diphtheria/pertussis, acel(Tdap) 08/02/15 Given 1Result Comment: diluent lot # [id number] exp 01/17/22 Medications ibuprofen 600 mg oral tablet 1, tablet, By Mouth, 2 times a day, PRN, # 60 tablet, Refills 1, Tot. Refills 1, Maintenance, Pain , Moderate, 04/24/22 8:24:00 EST, Route to Pharmacy Electronically, [facility]/pharmacy #[id number], 154.1, cm, 02/08/22 [...] Resident Member Role: PCP Address: Address: [address] [place] [phone]- Care Team Related Persons Name: ABY OBREGON Name: JACEK TURNER Address: home [address] [place] [address] Name: LATASHA TURNER Address: home [address] [place] [address]
--- OUTSIDE RECORDS SUMMARY | 2023-07-12 08:06 | XMS_ITS | Continuity of Care Document ---
Author Organization [facility] Address [address] [place] [address]- Care Team Providers Care Dental Services Director Name Role Phone Ora Mendoza MD Primary Care Physician Encounter [facility] Date(s): 02/08/22 - 03/10/[address] [address]- Attending Physician: AdmLucy william Admitting Physician: AdmtrLucy Referring Physician: Admtr, Ar8 Allergies, Adverse Reactions, Alerts No Known Medication Allergies Immunizations Given and Recorded Vaccine Date Status Refusal Reason influenza virus vaccine, inactivated 02/08/22 Give n influenza virus vaccine, inactivated 01/15/19 Give n influenza virus vaccine, inactivated 05/17/17 Give n influenza virus vaccine, inactivated 08/02/15 Give n [id number] 12y+ bivalent booster vax 02/08/22 Given SARS-CoV-2 mRNA (rhoeeon-gnoj-frxax) vax 05/04/21 Recorded SARS-CoV-2 mRNA (xzgxlpp-qctv-njnrp) vax 04/13/21 Recorded Measles/Mumps/Rubella Virus Vaccine 1 09/09/20 Giv en tetanus/diphtheria/pertussis, acel(Tdap) 08/02/15 Given 1Result Comment: diluent lot # [id number] exp 01/17/22 Medications ibuprofen 600 mg oral tablet 1, tablet, By Mouth, 2 times a day, PRN, # 60 tablet, Refills 0, Tot. Refills 0, Maintenance, Pain , Moderate, 02/08/22 15:31:00 EST, Route to Pharmacy Electronically, [facility]/pharmacy #[id number], 154.1, cm, 02/08/22 15:06:00 EST, [...] 5 Refills, Maintenance, 02/08/22 15:31:00 EST, Tablet, [id number], Partial fill upon patient request if the [...] Personnel Name: Kelly KC, Ora Ariza Position: [facility] Resident Member Role: PCP Address: Address: [address] [place] [address]- Care Team Related Persons Name: ABY OBREGON Name: JACEK TURNER Address: home [address] [place] [address] Name: LATASHA TURNER Address: home [address] [place] [address]
--- OUTSIDE RECORDS SUMMARY | 2023-07-12 08:06 | XMS_ITS | Continuity of Care Document ---
Author Organization [facility] Address [address] [place] [address]- Care Team Providers Care Protective Clothing Issuer Name Role Phone Kelly KC, Ora Ariza Primary Care Physician Encounter [facility] ACCT R [id number] Date(s): 12/09/20 - 01/22/[address] [address] Attending Physician: Not on Staff, Attending MD Allergies, Adverse Reactions, Alerts No Known Medication Allergies Immunizations Given and Recorded Vaccine Date Status Refusal Reason Measles/Mumps/Rubella Virus Vaccine 1 09/09/20 Giv en influenza virus vaccine, inactivated 01/15/19 Give n influenza virus vaccine, inactivated 05/17/17 Give n influenza virus vaccine, inactivated 08/02/15 Give n tetanus/diphtheria/pertussis, acel(Tdap) 08/02/15 Given 1Result Comment: diluent lot # [id number] exp 01/17/22 Medications cetirizine 10 mg oral [...] Soft Stop, 08/19/20 18:22:00 EDT, Tablet, [id number], Partial fill upon patient request if the [...]
--- OUTSIDE RECORDS SUMMARY | 2023-07-12 08:06 | XMS_ITS | Continuity of Care Document ---
Author Organization [facility] Address [address] [place] [address]- Care Team Providers Care Crimping Machine Operator Name Role Phone Kelly KC, Ora Ariza Primary Care Physician En[place] [facility] Date(s): 09/21/20 - 10/21/[address] [address] Allergies, Adverse Reactions, Alerts No Known Medication Allergies Immunizations Given and Recorded Vaccine Date Status Refusal Reason Measles/Mumps/Rubella Virus Vaccine 1 09/09/20 Giv en influenza virus vaccine, inactivated 01/15/19 Give n influenza virus vaccine, inactivated 05/17/17 Give n influenza virus vaccine, inactivated 08/02/15 Give n tetanus/diphtheria/pertussis, acel(Tdap) 08/02/15 Given 1Result Comment: diluent lot # [id number] exp 01/17/22 Medications cetirizine 10 mg oral [...] Soft Stop, 08/19/20 18:22:00 EDT, Tablet, [id number], Partial fill upon patient request if the prescription is for a schedule II opioid... Start Date: 08/19/20 Status: Ordered Problem List Condition Effective Dates Status Health Status Inform ant Obesity (BMI 35.0-39.9 witho ut comorbidity)(Confirmed) Active Carpal tunnel syndrome(Confirmed) Active
--- OUTSIDE RECORDS SUMMARY | 2023-07-12 08:06 | XMS_ITS | Continuity of Care Document ---
Author Organization [facility] Address [address] [place] [address]- Care Team Providers Care Compensation Consulting Manager Name Role Phone Kelly KC, Ora Ariza Primary Care Physician En[place] [facility]CT R [id number] Date(s): 06/10/20 - 07/20/[address] [address]- Attending Physician: Not on Staff, Attending MD [...]
--- OUTSIDE RECORDS SUMMARY | 2023-07-12 08:06 | XMS_ITS | Continuity of Care Document ---
Author Organization [facility] Address [address] [place] [address]- Care Team Providers Care Photo Manager Name Role Phone Kelly KC, Ora Ariza Primary Care Physician En[place] [facility] Date(s): 12/12/22 - 01/11/[address] [address]- Allergies, Adverse Reactions, Alerts No Known Medication Allergies Immunizations Given and Recorded Vaccine Date Status Refusal Reason influenza virus vaccine, inactivated 02/08/22 Give n influenza virus vaccine, inactivated 01/15/19 Give n influenza virus vaccine, inactivated 05/17/17 Give n influenza virus vaccine, inactivated 08/02/15 Give n [id number] 12y+ bivalent booster vax 02/08/22 Given SARS-CoV-2 mRNA (jxscyvl-sfyq-qfygo) vax 05/04/21 Recorded SARS-CoV-2 mRNA (ciiuphq-ukal-gmmhw) vax 04/13/21 Recorded Measles/Mumps/Rubella Virus Vaccine 1 09/09/20 Giv en tetanus/diphtheria/pertussis, acel(Tdap) 08/02/15 Given 1Result Comment: diluent lot # [id number] exp 01/17/22 Medications ibuprofen 600 mg oral tablet 1, tablet, By Mouth, 2 times a day, PRN, # 60 tablet, Refills 1, Tot. Refills 1, Maintenance, Pain , Moderate, 04/24/22 8:24:00 EST, Route to Pharmacy Electronically, [facility]/pharmacy #[id number], 154.1, cm, 02/08/22 15:06:00 EST, Height Start Date: 04/24/22 Status: Ordered ibuprofen 800 mg oral tablet 800 mg, 1, tablet, By Mouth, 3 times a day, # 90 tablet, Refills 0, Tot. Refills 0, Acute 03/24/23 15:45:00 EST, 11/23/22 15:45:00 EDT, Route to Pharmacy Electronically, [facility]/pharmacy #[id number], Partial fill upon patient request if the [...] Resident Member Role: PCP Address: Address: [address] [place] [address]- Care Team Related Persons Name: ABY OBREGON Name: JACEK TURNER Address: home [address] [place] [address] Name: LATASHA TURNER Address: home [address] [place] [address]
--- OUTSIDE RECORDS SUMMARY | 2023-07-12 08:06 | XMS_ITS | Continuity of Care Document ---
Author Organization [facility] Address [address] [place] [address]- Care Team Providers Care Jewelry Dipper Name Role Phone Kelly KC, Ora Ariza Primary Care Physician Encounter [facility] Date(s): 11/11/20 - 12/11/[address] [address] Allergies, Adverse Reactions, Alerts No Known Medication Allergies Immunizations Given and Recorded Vaccine Date Status Refusal Reason Measles/Mumps/Rubella Virus Vaccine 1 09/09/20 Giv en influenza virus vaccine, inactivated 01/15/19 Give n influenza virus vaccine, inactivated 05/17/17 Give n influenza virus vaccine, inactivated 08/02/15 Give n tetanus/diphtheria/pertussis, acel(Tdap) 08/02/15 Given 1Result Comment: diluent lot # [id number] exp 01/17/22 Medications cetirizine 10 mg oral [...] Soft Stop, 08/19/20 18:22:00 EDT, Tablet, [facility]/pharmacy #[id number], Partial fill upon patient request if the prescription is for a schedule II opioid... Start Date: 08/19/20 Status: Ordered SUMAtriptan 50 mg oral tablet 1 tablet = 50 mg, By Mouth, Daily, PRN for migraine headache, for 14 days, may repeat dose after 2 hours up to a maximum of 2, # 9 tablet, 0 Refills, Acute 12/23/20 10:41:00 EDT, 12/09/20 10:41:00 EDT, Tablet, [id number], Partial fill upon pat... Start Date: 12/09/20 Stop Date: 12/23/20 Status: Ordered Problem List Condition Effective Dates Status Health Status Inform ant Obesity (BMI 35.0-39.9 witho ut comorbidity)(Confirmed) Active Carpal tunnel syndrome(Confirmed) Active
--- OUTSIDE RECORDS SUMMARY | 2023-07-12 08:06 | XMS_ITS | Continuity of Care Document ---
Author Organization [facility] Address [address] [place] [address]- Care Team Providers Care Deaf Interpreter Name Role Phone Ora Mendoza MD Primary Care Physician En[facility] Date(s): 09/18/22 - 10/24/22 [facility] [address] [address]- Attending Physician: Dale Pugh MD Admitting Physician: Dale Pugh MD Referring Physician: Dale Pugh MD Allergies, Adverse Reactions, Alerts No Known Medication Allergies Immunizations Given and Recorded Vaccine Date Status Refusal Reason influenza virus vaccine, inactivated 02/08/22 Give n influenza virus vaccine, inactivated 01/15/19 Give n influenza virus vaccine, inactivated 05/17/17 Give n influenza virus vaccine, inactivated 08/02/15 Give n KDQM-DmP-0vKFE 12y+ bivalent booster vax 02/08/22 Given SARS-CoV-2 mRNA (bmlsrrw-tzkl-kqlzp) vax 05/04/21 Recorded SARS-CoV-2 mRNA (dfhizmp-wvvi-pprjp) vax 04/13/21 Recorded Measles/Mumps/Rubella Virus Vaccine 1 09/09/20 Giv en tetanus/diphtheria/pertussis, acel(Tdap) 08/02/15 Given 1Result Comment: diluent lot # [id number] exp 01/17/22 Medications ibuprofen 600 mg oral tablet 1, tablet, By Mouth, 2 times a day, PRN, # 60 tablet, Refills 1, Tot. Refills 1, Maintenance, Pain , Moderate, 04/24/22 8:24:00 EST, Route to Pharmacy Electronically, [facility]/pharmacy #[id number], 154.1, cm, 02/08/22 15:06:00 EST, [...] S Resident Member Role: PCP Address: Address: [address] [place] [address]- Care Team Related Persons Name: ABY OBREGON Name: JACEK TURNER Address: home [address] [place] [address] Name: LATASHA TURNER Address: home [address] [place] [address]
--- OUTSIDE RECORDS SUMMARY | 2023-07-12 08:06 | XMS_ITS | Continuity of Care Document ---
Author Organization [facility] Address [address] [place] [address]- Care Team Providers Care Credit Charge Authorizer Name Role Phone Ora Mendoza MD Primary Care Physician Encounter [facility] Date(s): 03/07/23 - 04/06/[address] [address]- Allergies, Adverse Reactions, Alerts No Known Medication Allergies Immunizations Given and Recorded Vaccine Date Status Refusal Reason influenza virus vaccine, inactivated 02/08/22 Give n influenza virus vaccine, inactivated 01/15/19 Give n influenza virus vaccine, inactivated 05/17/17 Give n influenza virus vaccine, inactivated 08/02/15 Give n [id number]-7aARB 12y+ bivalent booster vax 02/08/22 Given SARS-CoV-2 mRNA (aczdtvr-ytme-ccshu) vax 05/04/21 Recorded SARS-CoV-2 mRNA (zjkzhzb-jujv-imgpu) vax 04/13/21 Recorded Measles/Mumps/Rubella Virus Vaccine 1 09/09/20 Giv en tetanus/diphtheria/pertussis, acel(Tdap) 08/02/15 Given 1Result Comment: diluent lot # [id number] exp 01/17/22 Medications Aerochamber See Instructions, # [...] S Resident Member Role: PCP Address: Address: [address] [place] [address]- Care Team Related Persons Name: ABY OBREGON Address: [place] [address] Name: JACEK TURNER Address: home [address] [place] [address] Name: LATASHA TURNER Address: home [address] [place] [address]
--- OUTSIDE RECORDS SUMMARY | 2023-07-12 08:06 | XMS_ITS | Continuity of Care Document ---
Author Organization [facility] Address [address] [place] [address]- Care Team Providers Care Store Mgr Name Role Phone Kelly KC, Ora Ariza Primary Care Physician Encounter [facility] ACCT R [id number] Date(s): 08/08/21 - 09/07/[address] [address]- Attending Physician: Lucy Leavitt Admitting Physician: Lucy Leavitt Referring Physician: AdmtrLucy Allergies, Adverse Reactions, Alerts No Known Medication Allergies Immunizations Given and Recorded Vaccine Date Status Refusal Reason SARS-CoV-2 mRNA (uwdkdjz-raxk-dksvv) vax 05/04/21 Recorded SARS-CoV-2 mRNA (pcmpfkf-vtxx-eniha) vax 04/13/21 Recorded Measles/Mumps/Rubella Virus Vaccine 1 09/09/20 Giv en influenza virus vaccine, inactivated 01/15/19 Give n influenza virus vaccine, inactivated 05/17/17 Give n influenza virus vaccine, inactivated 08/02/15 Give n tetanus/diphtheria/pertussis, acel(Tdap) 08/02/15 Given 1Result Comment: diluent lot # [id number] exp 01/17/22 Medications cetirizine 10 mg oral [...] NEEDED FOR HEADACHE, Route to Pharmacy Electronically, [id number], 154.1, cm, 03/09/21 11:54:00 EST, Height, 93.1, [...] 5 Refills, Maintenance, 04/14/21 18:22:00 EST, Tablet, [facility]/pharmacy #[id number], Partial fill upon patient request if the prescription is for a schedule II opioid... Start Date: 04/14/21 Stop Date: 10/11/21 Status: Ordered Problem List Condition Effective Dates Status Health Status Inform ant Obesity (BMI 35.0-39.9 witho ut comorbidity)(Confirmed) Active Carpal tunnel syndrome(Confirmed) Active Migraine(Confirmed) Active Nasal congestion(Confirmed) Active Obese class II(Confirmed) Active
--- OUTSIDE RECORDS SUMMARY | 2023-07-12 08:07 | XMS_ITS | Continuity of Care Document ---
Author Organization [facility] Address [address] [place] [address] [address] [place] [address]- Care Team Providers Care Lead Performance Support Analyst Name Role Phone Kelly KC, Ora Ariza Primary Care Physician Encounter [facility] Date(s): 09/02/20 - 10/02/[address] [place], [place] [address] Allergies, Adverse Reactions, Alerts No Known Medication Allergies Immunizations Given and Recorded Vaccine Date Status Refusal Reason Measles/Mumps/Rubella Virus Vaccine 1 09/09/20 Giv en influenza virus vaccine, inactivated 01/15/19 Give n influenza virus vaccine, inactivated 05/17/17 Give n influenza virus vaccine, inactivated 08/02/15 Give n tetanus/diphtheria/pertussis, acel(Tdap) 08/02/15 Given 1Result Comment: diluent lot # [id number] exp 01/17/22 Medications cetirizine 10 mg oral [...] Refills, Soft Stop, 08/19/20 18:22:00 EDT, Tablet, [facility]/pharmacy #[id number], Partial fill upon patient request if the prescription is for a schedule II opioid... Start Date: 08/19/20 Status: Ordered Problem List Condition Effective Dates Status Health Status Inform ant Obesity (BMI 35.0-39.9 witho ut comorbidity)(Confirmed) Active Carpal tunnel syndrome(Confirmed) Active
--- OUTSIDE RECORDS SUMMARY | 2023-07-12 08:07 | XMS_ITS | Continuity of Care Document ---
Author Organization [facility] Address [address] [place] [address]- Care Team Providers Care Shipping Lead Person Name Role Phone Kelly KC, Ora Ariza Primary Care Physician Encounter [facility] Date(s): 02/28/23 - 03/30/[address] [address]- Allergies, Adverse Reactions, Alerts No Known Medication Allergies Immunizations Given and Recorded Vaccine Date Status Refusal Reason influenza virus vaccine, inactivated 02/08/22 Give n influenza virus vaccine, inactivated 01/15/19 Give n influenza virus vaccine, inactivated 05/17/17 Give n influenza virus vaccine, inactivated 08/02/15 Give n UVRZ-QjK-3jCPM 12y+ bivalent booster vax 02/08/22 Given SARS-CoV-2 mRNA (pqrrcil-twgn-aeqqm) vax 05/04/21 Recorded SARS-CoV-2 mRNA (cnjdmna-sjdb-vledr) vax 04/13/21 Recorded Measles/Mumps/Rubella Virus Vaccine 1 09/09/20 Giv en tetanus/diphtheria/pertussis, acel(Tdap) 08/02/15 Given 1Result Comment: diluent lot # [id number] exp 01/17/22 Medications Aerochamber See Instructions, # 1 each, Maintenance, to be used with asthmanex, 03/12/23 9:13:00 EST, Supply, 156, cm, 03/12/23 8:53:00 EST, Height, 99.4, kg, 03/04/23 22:47:00 EST, Dry Weight Start Date: 03/12/23 Status: Ordered albuterol 0.083% inhalation solution 3 mL = 2.5 mg, Inhalation, Every 6 hours, PRN for wheezing, # 25 each, 0 Refills, Acute 04/04/23 23:00:00 EST, 03/04/23 23:21:00 EST, [facility], [id number], Partial fill upon patient request if the prescription is for a schedule II opioid drug.... Start Date: 03/04/23 Stop Date: 04/04/23 Status: Ordered albuterol CFC free 90 mcg/inh inhalation aerosol See Instructions, PRN, 2 puffs Inhalation every 4 hours as needed for wheezing or difficulty breathing., # 1 each, Refills 0, Tot. Refills 0, Acute 04/04/23 23:00:00 EST, 03/04/23 23:21:00 EST, Instructions Replace Required Details, Route to Pharmacy... Start Date: 03/04/23 Stop Date: 04/04/23 Status: Ordered mometasone 100 mcg/inh inhalation aerosol 2 puffs, Inhalation, 2 times a day, rinse mouth and throat after use, # 13 Gm, 11 Refills, Maintenance, 03/12/23 9:12:00 EST, Aerosol, [facility]/pharmacy #[id number], Partial fill upon patient request if [...] Team Personnel Name: Ora Mendoza MD Position: [facility] Resident Member Role: PCP Address: Address: [address] [place] [address] [place] [address] [place] Care Team Related Persons Name: ABY OBREGON Address: [place] [address] Name: JACEK TURNER Address: home [address] [place] [address] Name: LATASHA TURNER Address: home [address] [place] [address]
--- OUTSIDE RECORDS SUMMARY | 2023-07-12 08:07 | XMS_ITS | Continuity of Care Document ---
Author Organization [facility] Address [address] [place] [address]- Care Team Providers Care Refrigerated Company Driver Name Role Phone Ora Mendoza MD Primary Care Physician Encounter [facility] ACCT R [id number] Date(s): 10/10/22 - 10/11/[address] [address]- Discharge Disposition: A-D/C Walkout Attending Physician: Not on Staff, Attending MD Admitting Physician: Not on Staff, Admitting MD Referring Physician: Not on Staff, Referring MD Allergies, Adverse Reactions, Alerts No Known Medication Allergies Immunizations Given and Recorded Vaccine Date Status Refusal Reason influenza virus vaccine, inactivated 02/08/22 Give n influenza virus vaccine, inactivated 01/15/19 Give n influenza virus vaccine, inactivated 05/17/17 Give n influenza virus vaccine, inactivated 08/02/15 Give n HYFZ-CfS-4uHUM 12y+ bivalent booster vax 02/08/22 Given SARS-CoV-2 mRNA (gvpvfhd-befj-ydlst) vax 05/04/21 Recorded SARS-CoV-2 mRNA (vyasjed-egnm-vbcze) vax 04/13/21 Recorded Measles/Mumps/Rubella Virus Vaccine 1 09/09/20 Giv en tetanus/diphtheria/pertussis, acel(Tdap) 08/02/15 Given 1Result Comment: diluent lot # [id number] exp 01/17/22 Medications ibuprofen 600 mg oral tablet 1, tablet, By Mouth, 2 times a day, PRN, # 60 tablet, Refills 1, Tot. Refills 1, Maintenance, Pain , Moderate, 04/24/22 8:24:00 EST, Route to Pharmacy Electronically, [facility]/pharmacy #[id number], 154.1, cm, 02/08/22 15:06:00 EST, Height [...] Confirmed Active Obese class II Confirmed Active Vital Signs Most recent to oldest [Reference Range]: 1 2 3 Height 156 cm (10/11/22 1:35 AM) 156 cm (10/10/22 10:13 PM) Weight 96 kg (10/11/22 1:35 AM) 96 kg (10/10/22 10:13 PM) Pulse Rate [55-90 bpm] 88 bpm (10/11/22 1:36 AM) 103 bpm *H* (10/10/22 10:13 PM) Body Mass Index [18.5-24.99 kg/m2] 39.45 kg/m2 *>HHI* (10/11/22 1:35 AM) Blood Pressure [90-138/55-84 mm Hg] 110/71mm Hg (10/11/22 1:36 AM) 124/58mm Hg (10/10/22 10:13 PM) Respiratory Rate [16-30 br/min] 18 br/min (10/11/22 1:36 AM) 18 br/min (10/11/22 1:35 AM) 18 br/min (10/10/22 10:13 PM) Temperature [96.8-100.4 DegF] 98.4 DegF (10/11/22 1:36 AM) 98.7 DegF (10/10/22 10:13 PM) Mode of Delivery (Oxygen) Room air (10/10/22 10:13 PM) Blood pressure sites Arm, left (10/11/22 1:36 AM) Arm, left (10/10/22 10:13 PM) Temperature Route Oral (10/11/22 1:36 AM) Oral (10/10/22 10:13 PM) Dry Weight 96 kg (10/11/22 1:35 AM) 96 kg (10/10/22 10:13 PM) Social History Social History Type Response Smoking Status Never (less than 100 in lifetime) entered on: 10/10/22 Sex EKG study * Event Display: EKG Authored Date: Patient Care team information Care Team Personnel Name: Kelly KC, Ora Ariza Position: [facility] Resident Member Role: PCP Address: Address: [address] [place] [address]- Care Team Related Persons Name: ABY OBREGON Name: JACEK TURNER Address: home [address] [place] [address] Name: LATASHA TURNER Address: home [address] [place] [address]
--- OUTSIDE RECORDS SUMMARY | 2023-07-12 08:07 | XMS_ITS | Continuity of Care Document ---
Author Organization [facility] Address [address] [place] [address]- Care Team Providers Care Heat Treating Furnace Tender Name Role Phone Kelly KC, Ora Ariza Primary Care Physician Encounter [facility] Date(s): 04/29/20 - 06/08/[address] [address]- Attending Physician: Subha Márquez MD Admitting Physician: Subha Márquez MD Allergies, Adverse Reactions, Alerts No Known [...]
--- OUTSIDE RECORDS SUMMARY | 2023-07-12 08:07 | XMS_ITS | Continuity of Care Document ---
Author Organization [facility] Address [address] [place] [address]- Care Team Providers Care Boilermaker Apprentice Name Role Phone Kelly KC, Ora Ariza Primary Care Physician [place] [facility] [place] [facility] [id number] Date(s): 09/23/20 - 10/23/[address] [address] Attending Physician: Lucy Leavitt Admitting Physician: Admtr, [...] 08/02/15 Given 1Result Comment: diluent lot # [id number] exp 01/17/22 Medications cetirizine 10 mg oral [...] Soft Stop, 08/19/20 18:22:00 EDT, Tablet, [id number], Partial fill upon patient request if the prescription is for a schedule II opioid... Start Date: 08/19/20 Status: Ordered Problem List Condition Effective Dates Status Health Status Inform ant Obesity (BMI 35.0-39.9 witho ut comorbidity)(Confirmed) Active Carpal tunnel syndrome(Confirmed) Active
--- OUTSIDE RECORDS SUMMARY | 2023-07-12 08:07 | XMS_ITS | Continuity of Care Document ---
Author Organization [facility] Address [address] [place] [address]- Care Team Providers Care Computer Security Coordinator Name Role Phone Chencho Pina MD Primary Care Physician Encounter [facility] [place] Date(s): 08/10/19 - 09/09/[address] [address]- [facility] Attending Physician: Jessica Moon NP Allergies, Adverse [...] 10:31:00 EST, Route to Pharmacy Electronically, [facility]pharmacy #[id number], 154.1, cm, 05/25/19 9:56:00 EST, [...]
--- OUTSIDE RECORDS SUMMARY | 2023-07-12 08:07 | XMS_ITS | Continuity of Care Document ---
Author Organization [facility] Address [address] [place] [address]- Care Team Providers Care Pricing Manager Name Role Phone Kelly KC, Ora Ariza Primary Care Physician [place] [facility] [id number] Date(s): 08/24/20 - 10/01/[address] [address]- Attending Physician: Not on Staff, Attending MD Allergies, Adverse Reactions, Alerts No Known Medication Allergies Immunizations Given and Recorded Vaccine Date Status Refusal Reason Measles/Mumps/Rubella Virus Vaccine 1 09/09/20 Giv en influenza virus vaccine, inactivated 01/15/19 Give n influenza virus vaccine, inactivated 05/17/17 Give n influenza virus vaccine, inactivated 08/02/15 Give n tetanus/diphtheria/pertussis, acel(Tdap) 08/02/15 Given 1Result Comment: diluent lot # [id number] exp 01/17/22 Medications cetirizine 10 mg oral [...] Soft Stop, 08/19/20 18:22:00 EDT, Tablet, [id number], Partial fill upon patient request if the prescription is for a schedule II opioid... Start Date: 08/19/20 Status: Ordered Problem List Condition Effective Dates Status Health Status Inform ant Obesity (BMI 35.0-39.9 witho ut comorbidity)(Confirmed) Active Carpal tunnel syndrome(Confirmed) Active
--- OUTSIDE RECORDS SUMMARY | 2023-07-12 08:07 | XMS_ITS | Continuity of Care Document ---
Author Organization [facility] Address [address] [place] [address]- Care Team Providers Care Hematology Nurse Name Role Phone Kelly KC, Ora Ariza Primary Care Physician Encounter [facility] [place] Date(s): 03/07/23 - 04/10/[address] [address]- Attending Physician: Garland Montes MD Admitting Physician: Garland Montes MD Allergies, Adverse Reactions, Alerts No Known Medication Allergies Immunizations Given and Recorded Vaccine Date Status Refusal Reason influenza virus vaccine, inactivated 02/08/22 Give n influenza virus vaccine, inactivated 01/15/19 Give n influenza virus vaccine, inactivated 05/17/17 Give n influenza virus vaccine, inactivated 08/02/15 Give n [id number] 12y+ bivalent booster vax 02/08/22 Given SARS-CoV-2 mRNA (kmfleea-hvkf-ormio) vax 05/04/21 Recorded SARS-CoV-2 mRNA (ctdpiha-iycv-nidqf) vax 04/13/21 Recorded Measles/Mumps/Rubella Virus Vaccine 1 09/09/20 Giv en tetanus/diphtheria/pertussis, acel(Tdap) 08/02/15 Given 1Result Comment: diluent lot # [id number] exp 01/17/22 Medications Aerochamber See Instructions, # [...] Resident Member Role: PCP Address: Address: [address] [place] [address]- Care Team Related Persons Name: ABY OBREGON Address: [place] [address] Name: JACEK TURNER Address: home [address] [place] [address] Name: LATASHA TURNER Address: home [address] [place] [address]
--- OUTSIDE RECORDS SUMMARY | 2023-07-12 08:07 | XMS_ITS | Continuity of Care Document ---
Author Organization [facility] Address [address] [place] [address]- Care Team Providers Care Internet Designer Name Role Phone Ora Mendoza MD Primary Care Physician [place] [facility] [place]/08/[place] - 07/08/[address] [address]- Attending Physician: AdmLucy william Admitting Physician: AdmtrLucy Referring Physician: Admtr, Ar8 Allergies, Adverse Reactions, Alerts No Known Medication Allergies Immunizations Given and Recorded Vaccine Date Status Refusal Reason influenza virus vaccine, inactivated 02/08/22 Give n influenza virus vaccine, inactivated 01/15/19 Give n influenza virus vaccine, inactivated 05/17/17 Give n influenza virus vaccine, inactivated 08/02/15 Give n [id number] 12y+ bivalent booster vax 02/08/22 Given SARS-CoV-2 mRNA (xboxwme-lroy-hinin) vax 05/04/21 Recorded SARS-CoV-2 mRNA (eqhhxel-quzr-gszqc) vax 04/13/21 Recorded Measles/Mumps/Rubella Virus Vaccine 1 09/09/20 Giv en tetanus/diphtheria/pertussis, acel(Tdap) 08/02/15 Given 1Result Comment: diluent lot # [id number] exp 01/17/22 Medications ibuprofen 600 mg oral tablet 1, tablet, By Mouth, 2 times a day, PRN, # 60 tablet, Refills 1, Tot. Refills 1, Maintenance, Pain , Moderate, 04/24/22 8:24:00 EST, Route to Pharmacy Electronically, [facility]/pharmacy #[id number], 154.1, cm, 02/08/22 15:06:00 [...] S Resident Member Role: PCP Address: Address: [address] [place] [address]- Care Team Related Persons Name: ABY OBREGON Name: JACEK UTRNER Address: home [address] [place] [address] Name: LATASHA TURNER Address: home [address] [place] [address]
--- OUTSIDE RECORDS SUMMARY | 2023-07-12 08:07 | XMS_ITS | Continuity of Care Document ---
Author Organization [facility] Address [address] [place] [address]- Care Team Providers Care Salesperson Terrazzo Tiles Name Role Phone Chencho Pina MD Primary Care Physician Encounter [facility] [place] Date(s): 01/15/19 - 03/14/[address] [address]- [facility] Attending Physician: Not on Staff, Attending MD Referring Physician: Red SUPERVISOR IN CHARGE, Jessica Allergies, Adverse Reactions, Alerts No Known [...] Acute 03/27/19 11:21:00 EST, 03/13/19 11:21:00 EST, [facility]/pharmacy #[id number], 154.1, cm, 03/13/19 10:45:00 EST, Height [...]
--- OUTSIDE RECORDS SUMMARY | 2023-07-12 08:07 | XMS_ITS | Continuity of Care Document ---
Author Organization [facility] Address [address] [place] [address]- Care Team Providers Care Range Mechanic Name Role Phone Ora Mendoza MD Primary Care Physician Encounter [facility] [place] Date(s): 03/28/23 - 04/27/[address] [address] Attending Physician: Admtr, Lucy Admitting Physician: Admtr, Ar8 Referring Physician: Admtr, Ar8 Allergies, Adverse Reactions, Alerts No Known Medication Allergies Immunizations Given and Recorded Vaccine Date Status Refusal Reason influenza virus vaccine, inactivated 02/08/22 Give n influenza virus vaccine, inactivated 01/15/19 Give n influenza virus vaccine, inactivated 05/17/17 Give n influenza virus vaccine, inactivated 08/02/15 Give n [id number] 12y+ bivalent booster vax 02/08/22 Given SARS-CoV-2 mRNA (vjvvhmm-nuhm-ppzly) vax 05/04/21 Recorded SARS-CoV-2 mRNA (nccuyqe-fkpv-sxtgj) vax 04/13/21 Recorded Measles/Mumps/Rubella Virus Vaccine 1 09/09/20 Giv en tetanus/diphtheria/pertussis, acel(Tdap) 08/02/15 Given 1Result Comment: diluent lot # [id number] exp 01/17/22 Medications Aerochamber See Instructions, # [...] Refills, Maintenance, 03/12/23 9:12:00 EST, [facility], [id number], Partial fill upon patient request if the [...] S Resident Member Role: PCP Address: Address: [address] [place] [address]- Care Team Related Persons Name: ABY OBREGON Address: [place] [address] Name: JACEK TURNER Address: home [address] [place] [address] Name: LATASHA TURNER Address: home [address] [place] [address]
--- NOTE | 2023-07-12 12:32 | A.OFFVIS_ITS ---
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*: Details: Start time: 12.25pm, End time: 1.25pm ?I spent 50 minutes speaking with the patient on the phone plus an additional 10 minutes reviewing and updating records for a total of 60 minutes HPI Comments Details: Previous weight loss efforts: exercise and self diets Wakes up: 4.30-6am, sleeps: 10pm Breakfast: 7.30am (eggs) Lunch: occasionally outside (fast food) Dinner: 6pm (rice and chicken) Snacks: 12-1pm (banana), after dinner (fruits, corn flakes) Exercise: none Fluids: Coffee: only occasionally, soda: occasionally, juice: none, ETOH: none PFSH Medical History (Updated 07/12/23 @ 12:39 by Tej Pelletier MD) DJD (degenerative joint disease) Anxiety Asthma Morbid obesity Surgical History (Updated 06/05/23 @ 09:25 by Carmen Mcgregor CMA) Hx of cholecystectomy Hx of carpal tunnel repair Family History (Updated 06/05/23 @ 09:31 by Carmen Mcgregor CMA) Mother Diabetes Father Cancer Son Asthma Son Asthma Daughter Asthma Social History (Updated 06/05/23 @ 09:25 by Carmen Mcgregor CMA) Alcohol intake: never Patient Tobacco Use Status: Never used Tobacco Telehealth Telehealth Location of provider rendering services: practice address Location of patient: address on file Patient Identification confirmed using: Name, : Yes Telehealth method: voice only Patient verbally consented to treatment: Yes Patient verbally consented to billing insurance company: Yes Patient informed of any privacy concerns related to visit: Yes Minutes spent on Phone/Video with Pt.: 60 Assessment & Plan Assessment & Plan (1) Morbid obesity: Code(s): E66.01 - Morbid (severe) obesity due to excess calories Category: Medical Plan: 1.? Plan for lap sleeve gastrectomy. If diaphragmatic or ventral hernias are present at time of surgery, these will be repaired laparoscopically as well. Risks and complications were discussed in detail including possible conversion to an open procedure, anastomotic leak, bleeding requiring transfusion, small bowel obstruction, , DVT and pulmonary embolism, cardiac, or pulmonary complications, as intermediate manager complications such as anastomotic ulcer, insufficient weight loss and vitamin deficiencies. I emphasized the importance of close follow-up, adherence to instructions and good communication. 2. Nutritional counseling. Start with 2 CELEBRATE REBUILD protein (buy at [facility] [employer] shop) shakes (ONE scoop EACH in 8oz low fat unsweetened almond milk each) at 7am-9am and 10am-12pm, 2 protein bars (CELEBRATE protein bars, buy at [facility]) at 1pm-3pm, 4pm-6pm, dinner at 7pm (8 forks of protein and 8 forks of salad/vegetables). If she feels hungry after dinner she can have another HALF protein bar at 9pm-10pm. So you do 2 protein shakes, 2 to 2.5 protein bars and one meal per day. Meal to include lean meat (beef, fish, pork, turkey, chicken), or vatican citizen yogurt, or egg whites, or beans with a salad with olive oil and fruits (berries, pears, apples, kiwi). Avoid salt, breads, potatoes, rice, pasta, desserts. 3. Each shake would be drunk slowly, like coffee in a period of 2 hours. 4. Cut each bar in 4 pieces and eat each piece in 30min ?to make each bar last 2 hours. 5. I emphasized the importance of measuring accurately the food portion and measure it when serving the food in plate 6. The meal portions include 8 full-size forks of meat and 8 full-size forks of salad. You always eat the meat portion but you can replace up to 4 forks for salad/vegetables with rice, potatoes or pasta, or a fruit ?if you like. The less you do it the better weight loss will be. 7. One full-size fork is what it can be scooped on the fork without falling aside and not what can be bit with the fork. Use regular forks like those you find in a typical restaurant. 8.? Please send me weight measurements as soon as possible and then once a week. Always include your diet and exercise plan. 9. Start walking outside daily, tracking calories with a goal of 300 calories per day, daily. Goal is to burn 2000 calories per week on exercise, which means either 300 calories daily, or 400 calories 5 days per week, or 500 calories 4 days per week, or 650 calories 3 days per week. 10. The best choice would be to purchase a stationary bike, elliptical or treadmill at home that can track calories. Let me know if you do so I can give you an exercise plan. 11.?It is important of avoiding and for at least 18 months postoperatively and has been discussed. 12. Goal is to lose at least 1.5-2lbs per week 13. Goal to lose 10% of your weight before surgery, which is about 22lbs. Ultimate weight goal: 197lbs before surgery 14. Please follow the diet plan exactly without any change. If you don't like something about the plan or you feel hungry you need to communicate with me so I can help you revise the plan. You should not change the plan yourself. Orders: Orders Comprehensive Met. Panel Today E66.01 - Morbid (severe) obesity due to excess calories, F41.9 - Anxiety disorder, unspecified, J45.909 - Unspecified asthma, uncomplicated, M19.90 - Unspecified osteoarthritis, unspecified site Zinc Today E66.01 - Morbid (severe) obesity due to excess calories, F41.9 - Anxiety disorder, unspecified, J45.909 - Unspecified asthma, uncomplicated, M19.90 - Unspecified osteoarthritis, unspecified site Ferritin Today E66.01 - Morbid (severe) obesity due to excess calories, F41.9 - Anxiety disorder, unspecified, J45.909 - Unspecified asthma, uncomplicated, M19.90 - Unspecified osteoarthritis, unspecified site ECG 12 lead EKG Today E66.01 - Morbid (severe) obesity due to excess calories, F41.9 - Anxiety disorder, unspecified, J45.909 - Unspecified asthma, uncomplicated, M19.90 - Unspecified osteoarthritis, unspecified site FL upper GI w air Today E66.01 - Morbid (severe) obesity due to excess calories, F41.9 - Anxiety disorder, unspecified, J45.909 - Unspecified asthma, uncomplicated, M19.90 - Unspecified osteoarthritis, unspecified site Insulin Today E66.01 - Morbid (severe) obesity due to excess calories, F41.9 - Anxiety disorder, unspecified, J45.909 - Unspecified asthma, uncomplicated, M19.90 - Unspecified osteoarthritis, unspecified site Hemoglobin A1c Today E66.01 - Morbid (severe) obesity due to excess calories, F41.9 - Anxiety disorder, unspecified, J45.909 - Unspecified asthma, uncomplicated, M19.90 - Unspecified osteoarthritis, unspecified site H Pylori Breath Test Today E66.01 - Morbid (severe) obesity due to excess calories, F41.9 - Anxiety disorder, unspecified, J45.909 - Unspecified asthma, uncomplicated, M19.90 - Unspecified osteoarthritis, unspecified site Complete Blood Count Auto Diff Today E66.01 - Morbid (severe) obesity due to excess calories, F41.9 - Anxiety disorder, unspecified, J45.909 - Unspecified asthma, uncomplicated, M19.90 - Unspecified osteoarthritis, unspecified site Lipid Panel Today E66.01 - Morbid (severe) obesity due to excess calories, F41.9 - Anxiety disorder, unspecified, J45.909 - Unspecified asthma, uncomplicated, M19.90 - Unspecified osteoarthritis, unspecified site IRON PROFILE Today E66.01 - Morbid (severe) obesity due to excess calories, F41.9 - Anxiety disorder, unspecified, J45.909 - Unspecified asthma, uncomplicated, M19.90 - Unspecified osteoarthritis, unspecified site Vitamin B12 and Folate Today E66.01 - Morbid (severe) obesity due to excess ca lories, F41.9 - Anxiety disorder, unspecified, J45.909 - Unspecified asthma, uncomplicated, M19.90 - Unspecified osteoarthritis, unspecified site C Reactive Protein Today E66.01 - Morbid (severe) obesity due to excess calories, F41.9 - Anxiety disorder, unspecified, J45.909 - Unspecified asthma, uncomplicated, M19.90 - Unspecified osteoarthritis, unspecified site Vitamin B1 Today E66.01 - Morbid (severe) obesity due to excess calories, F41.9 - Anxiety disorder, unspecified, J45.909 - Unspecified asthma, uncomplicated, M19.90 - Unspecified osteoarthritis, unspecified site Vitamin A Today E66.01 - Morbid (severe) obesity due to excess calories, F41.9 - Anxiety disorder, unspecified, J45.909 - Unspecified asthma, uncomplicated, M19.90 - Unspecified osteoarthritis, unspecified site TSH reflex Free T4 Today E66.01 - Morbid (severe) obesity due to excess calories, F41.9 - Anxiety disorder, unspecified, J45.909 - Unspecified asthma, uncomplicated, M19.90 - Unspecified osteoarthritis, unspecified site Vitamin D 25-OH Total Today E66.01 - Morbid (severe) obesity due to excess calories, F41.9 - Anxiety disorder, unspecified, J45.909 - Unspecified asthma, uncomplicated, M19.90 - Unspecified osteoarthritis, unspecified site US abdomen comp w elastography Today E66.01 - Morbid (severe) obesity due to excess calories, F41.9 - Anxiety disorder, unspecified, J45.909 - Unspecified asthma, uncomplicated, M19.90 - Unspecified osteoarthritis, unspecified site XR chest 2V Today E66.01 - Morbid (severe) obesity due to excess calories, F41.9 - Anxiety disorder, unspecified, J45.909 - Unspecified asthma, unc omplicated, M19.90 - Unspecified osteoarthritis, unspecified site Referrals Nutrition/Dietitian Referral E66.01 - Morbid (severe) obesity due to excess calories, F41.9 - Anxiety disorder, unspecified, J45.909 - Unspecified asthma, uncomplicated, M19.90 - Unspecified osteoarthritis, unspecified site Behavioral Health Referral E66.01 - Morbid (severe) obesity due to excess calories, F41.9 - Anxiety disorder, unspecified, J45.909 - Unspecified asthma, uncomplicated, M19.90 - Unspecified osteoarthritis, unspecified site
[2023-07-12 12:39] VITALS: BMI 41.4
== END 2023-07-12 13:28 | disposition home or self-care (01) ==
LOC: HO.HBS 08:03
PROVIDERS: PCP Pediatrics; Visit Provider Surgery
DX: E66.01 Morbid (severe) obesity due to excess calories (principal); Z68.41 Body mass index [BMI] 40.0-44.9, adult
CPT/HCPCS: 99205

== ENCOUNTER → 2023-07-12 08:03 | Outpatient (BNVA) | payer OTHER, SELFPAY | PROVIDERS: PCP Pediatrics; Visit Provider Surgery ==

== ENCOUNTER 2023-07-24 09:07 | Outpatient (REF) | payer OTHER, SELFPAY ==
--- NOTE | ~2023-07-24 | XR_ITS ---
EXAMINATION: XR CHEST CLINICAL INFORMATION: Morbid obesity due to atelectasis calories. Patient states she is in a weight management program COMPARISON: None available. TECHNIQUE: 2 views of the chest were obtained. FINDINGS: Lung volumes are low. Mild degenerative changes in the thoracic spine. No pleural effusion. Heart size is normal. Surgical clips in the right upper quadrant. No focal consolidation to suggest pneumonia. Mild dextroscoliosis of the thoracolumbar spine. XR/XR chest 2V IMPRESSION: No evidence of pneumonia.
[2023-07-24 09:50] LABS: MANUAL DIFF FLAG NO
[2023-07-24 10:57] LABS: Basophils Absolute Auto 0.1 X10*3/uL (0.0-0.2); Basophils Percent Auto 0.7 % (0-2); Eosinophils Absolute Auto 0.5 X10*3/uL (0.0-0.4); Eosinophils Percent Auto 5.9 % (0-4); Hematocrit 36.9 % (37.0-47.0); Hemoglobin 12.4 g/dl (12.0-16.0); Imm Gran Abs Auto 0.01 X10*3/uL (0.00-0.03); Lymphocytes Absolute Auto 2.5 X10*3/uL (1.2-4.9); Mean Corpuscular HGB Conc 33.6 g/dl (31.0-35.0); Mean Corpuscular Hemoglobin 28.4 pg (27.0-33.0); Mean Corpuscular Volume 84.6 fL (80.0-98.0); Neutrophils Absolute Auto 5.4 x10*3/uL (2.0-8.3); Platelet Count 313 X10*3/uL (160-400); Red Blood Count 4.36 X10*6/uL (4.20-5.50); Red Cell Distribution Width 12.8 % (11.0-16.0)
[2023-07-24 11:21] LABS: Estimated Average Glucose 114 mg/dL; Hemoglobin A1c % 5.6 % (<6.0)
[2023-07-24 11:47] LABS: Alkaline Phosphatase 82 U/L (39-117); Blood Urea Nitrogen 11 mg/dL (9-16); Calcium 9.2 mg/dL (8.4-10.2); Cholesterol 156 mg/dL (<200); Estimated Glomerular Filt Rate > 60; Glucose Random 86 mg/dL (60-115); HDL Cholesterol 39 mg/dL (>40); Iron 80 mcg/dL (30-160); LDL Cholesterol Calculated 103 mg/dL (<100); Triglycerides 74 mg/dL (<150)
[2023-07-24 11:57] LABS: Vitamin D 25-OH Total 10.8 ng/mL (>30)
[2023-07-27 01:18] LABS: Zinc 73 mcg/dL (60-130)
[2023-07-29 06:38] LABS: Vitamin B1 8 nmol/L (8-30)
[2023-07-29 15:48] LABS: Vitamin A 27 mcg/dL (38-98)
== END 2023-07-24 09:08 | disposition home or self-care (01) ==
LOC: HO.XRAY 09:07
PROVIDERS: PCP Pediatrics; Visit Provider Surgery
DX: E66.01 Morbid (severe) obesity due to excess calories (principal); J45.909 Unspecified asthma, uncomplicated; F41.9 Anxiety disorder, unspecified; M19.90 Unspecified osteoarthritis, unspecified site
CPT/HCPCS: 36415; 71046; 80053; 80061; 82306; 82607; 82728; 82746; 83036; 83525; 83540; 84425; 84443; 84590; 84630; 85025; 86140

== ENCOUNTER 2023-07-24 13:00 | Outpatient (AMB) | payer OTHER, SELFPAY ==
--- NOTE | 2023-07-24 13:09 | A.OFFWM_ITS ---
Intake Intake Visit Reasons: VIDEO BH Intake Allergies No Known Allergies Allergy (Verified 07/12/23 12:32) ON LICENSE OF [facility] Medical History (Updated 07/12/23 @ 12:39 by Tej Pelletier MD) DJD (degenerative joint disease) Anxiety Asthma Morbid obesity Surgical History (Updated 06/05/23 @ 09:25 by Carmen Mcgregor CMA) Hx of cholecystectomy Hx of carpal tunnel repair Family History (Updated 06/05/23 @ 09:31 by Carmen Mcgregor CMA) Mother Diabetes Father Cancer Son Asthma Son Asthma Daughter Asthma Social History (Updated 06/05/23 @ 09:25 by Carmen Mcgregor CMA) Alcohol intake: never Patient Tobacco Use Status: Never used Tobacco Behavioral Health Assessment Weight Management Therapy Therapy Notes Details Pt presents for BH assessment as part of surgical weight-loss program. Presenting Concerns Referral Source WMP provider. PT sees Dr Green Reason for referral Completion of behavioral health assessment as part of process for weight-loss surgery. Precipitating Event Obesity and overall health. She has been dealing with increased physical challenges impacting her work performance. Living Situation Current Living Situation Rent At risk of losing current housing? No Satisfied with current living situation? Yes Comments PT lives with her 3 children and the family dog. Food/Weight/Diet Expectations of change The initial goal is to lose 10% of weight before surgery, which is about 22 lbs. Ultimate weight goal: 197lbs before surgery. She would like to be at a healthy weight. History/Relationship with food Pt reports she has a normal relationship with food. She denies major emotional eating challenges, however, since she has stopped soda and carbs intake she is noticing increased cravings for sweets. Example of meals before starting the program. Breakfast: scrambled eggs or packages or a breakfast sandwich from [employer]. Lunch: @1pm anything from her job (for example [employer] chicken with fries and soda) Dinner: 6pm Rice, meat, salad or pasta. Somedays take out. History/Relationship with weight PT was never been overweight in childhood, and after her pregnancies, she was able to return to her pre- weight quite quickly. Before moving to [place] six years ago, she weighed around 140 pounds. However, over the past six years, she has been gradually gaining weight due to unhealthy food choices and a decrease in physical activity. History/Relationship with dieting Beach body, diet/exercise. Tries methods for 2-3 weeks, usually get unmotivated very quickly. Pt reports she has a hard time exercising alone, she would like to have an exercise partner. Social History Family history and relationship PT is a single mother of three and is currently in a relationship. Her parents have , and she has limited communication with her six siblings, but she is close to one sister. Parental/Familial smart energy specialist obligations PT has full custody of her 3 children. 15 y/o boy, 13 y/o girl and 11 y/o boy. Developmental history and status None reported. Currently WNL. Social support Boyfriend, sister, friend. Community support None. Mosque/Spirituality None reported. Cultural/Ethnic information Patient hails from [place] and relocated to [place] 6 years ago. The patient is solely Serbian-speaking. Legal Involvement and History Current or historical involvement with the legal system? None reported. Education Highest grade completed 12th grade. Graduated HS. Preferred learning style Learn by doing Currently enrolled in educational program? No Interested in further educational program? Yes (Kosovan and cosmetology) Educational Interests/Skills Cosmetology. 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 No Meaningful activities Family activities. Listen to music. Financial Situation Describe current financial situation Comfortable Financial assistance? Food [place] and Other (fuel assistance. ) Service Service? No Mental Health and Addiction Treatment Psychiatric history Meet with a counselor 2 times after her mother . But never in formal counseling and/or mental health treatment. Medical and Physical Health Summary Additional Medical History not covered in history None reported Sexual History concerns None reported Assessment & Plan Assessment & Plan (1) Adjustment disorder, unspecified: Code(s): F43.20 - Adjustment disorder, unspecified Plan PT not cleared today as we need to meet again to finish assessment. We will f/up in 2 weeks. Next miranda: 08/07/2023 at 1pm. Telehealth Telehealth Telehealth Platform: [employer] Location of provider rendering services: other (Home office. [place], [place].) Location of patient: address on file Patient Identification confirmed using: Name, : Yes Telehealth method: video Patient verbally consented to treatment: Yes Patient verbally consented to billing insurance company: Yes Patient informed of any privacy concerns related to visit: No Minutes spent on Phone/Video with Pt.: 60 Coding Level of Care Code New Pt Tele Psy Diag Eval (48301) Patient Type New Diagnoses Adjustment disorder, unspecified F43.20 Time Spent (min) 60
== END 2023-07-24 14:19 | disposition home or self-care (01) ==
LOC: HO.HBST 13:17
PROVIDERS: PCP Pediatrics; Visit Provider Counselor Mental Health
DX: F43.20 Adjustment disorder, unspecified (principal)
CPT/HCPCS: 90791

== ENCOUNTER 2023-07-29 09:07 | Outpatient (REF) | payer OTHER, SELFPAY ==
--- NOTE | ~2023-07-29 | US_ITS ---
EXAMINATION: US COMPLETE ABDOMEN WITH LIVER ELASTOGRAPHY CLINICAL INFORMATION: Morbid obesity. COMPARISON: None available. TECHNIQUE: Real-time imaging of the abdominal viscera. Noninvasive ultrasound liver fibrosis assessment is performed using Patrice ElastPQ point quantification shear wave elastography (2D-SWE) with a C5-2 MHz transducer. Multiple elastography samples are obtained. FINDINGS: PANCREAS: Limited. The visualized pancreatic neck and proximal body are normal in appearance. The remainder of the pancreas is obscured from visualization by the overlying bowel gas. ABDOMINAL AORTA: The proximal, middle, and distal aortic segments are normal in caliber. INFERIOR VENA CAVA: Visualized portions are normal. LIVER: The liver demonstrates normal size, contour and increased echogenicity. No focal lesion or intrahepatic biliary duct dilatation. The right lobe measures 15.0 cm in length. The left lobe measures 10.8 cm in length. Portal flow is towards the liver (hepatopetal). Shear wave liver elastography median stiffness is 1.34 m/s (reference: normal median stiffness is 1.3 m/s or less). IQR/median stiffness to assess sampling precision is 0.08 (reference: good quality data set is IQR/median stiffness of 0.15 or less). GALLBLADDER: Surgically absent. COMMON BILE DUCT: Normal in caliber post-cholecystectomy, measuring 0.8 cm in diameter. RIGHT KIDNEY: Normal. No hydronephrosis. No renal calculi or focal parenchymal lesions. The kidney measures 10.7 cm in maximum dimension. LEFT KIDNEY: Normal. No hydronephrosis. No renal calculi or focal parenchymal lesions. The kidney measures 11.0 cm in maximum dimension. SPLEEN: Normal. The spleen measures 10.7 cm in maximum dimension. FREE FLUID: None. US/US abdomen comp w elastography IMPRESSION: 1. There is generalized increase in hepatic echotexture, consistent with fatty infiltration or hepatocellular disease. Please correlate clinically. No focal hepatic mass or intrahepatic biliary dilatation is seen. 2. Liver elastography: In the absence of other known clinical signs, measurements rule out compensated advanced chronic liver disease. If there are known clinical signs, further testing may be needed for confirmation. 3. The gallbladder is surgically absent. 4. Technically limited ultrasound examination of the pancreas. REFERENCE: Society of Radiologists in Ultrasound Liver Stiffness Thresholds (2020): LIVER STIFFNESS THRESHOLDS: *Liver Stiffness equal or less than 1.3 m/s: High probability of being normal. *Liver Stiffness less than 1.7 m/s: In the absence of other known clinical signs, rules out compensated advanced chronic liver disease. *Liver Stiffness 1.7-2.1 m/s: Suggestive of compensated advanced chronic liver disease but need further test for confirmation. *Liver Stiffness over 2.1 m/s: Rules in compensated advanced chronic liver disease. *Liver Stiffness over 2.4 m/s: Suggestive of clinically significant portal hypertension. QUALITY OF DATA SET: *IQR/Median value equal or less than 0.15 implies a quality data set. *IQR/Median value over 0.15 implies a poor quality data set. SIGNIFICANT CHANGE FROM PRIOR EXAM: Significant change if liver stiffness measurement is 10% or greater from prior exam. OTHER CONSIDERATIONS: The stage of liver fibrosis may be overestimated in the setting of acute hepatitis, liver inflammation, elevated liver function tests, hepatic vascular congestion, obstructive cholestasis, non-fasting state, and infiltrative diseases such as amyloidosis and lymphoma. In some patients with NAFLD, the liver stiffness thresholds for compensated advanced chronic liver disease may be lower. In causes other than viral hepatitis and NAFLD, liver stiffness thresholds are not well established.
== END 2023-07-29 09:08 | disposition home or self-care (01) ==
LOC: HO.US 09:07
PROVIDERS: PCP Pediatrics; Visit Provider Surgery
DX: E66.01 Morbid (severe) obesity due to excess calories (principal); J45.909 Unspecified asthma, uncomplicated; F41.9 Anxiety disorder, unspecified; M19.90 Unspecified osteoarthritis, unspecified site
CPT/HCPCS: 76700; 76981

== ENCOUNTER → 2023-07-31 09:01 | Outpatient (REF) | payer OTHER, SELFPAY ==
--- NOTE | 2023-07-31 09:06 | ECG_ITS ---
Test Reason : morbid obesity Blood Pressure : / mmHG Vent. Rate : 065 BPM Atrial Rate : 065 BPM P-R Int : 152 ms QRS Dur : 084 ms QT Int : 392 ms P-R-T Axes : 033 056 026 degrees QTc Int : 407 ms Normal sinus rhythm Normal ECG No previous ECGs available Referred By: Tej Pelletier Electronically Signed By:Jn Garcia
== END ==
LOC: HO.CARD 09:01
PROVIDERS: PCP Pediatrics; Visit Provider Surgery
DX: E66.01 Morbid (severe) obesity due to excess calories (principal); J45.909 Unspecified asthma, uncomplicated
CPT/HCPCS: 93005

== ENCOUNTER → 2023-07-31 09:06 | Outpatient (BNV) | payer OTHER, SELFPAY | PROVIDERS: PCP Pediatrics; Visit Provider Internal Medicine Cardiovascular Disease | DX: E66.01 Morbid (severe) obesity due to excess calories (principal) | CPT/HCPCS: 93010 ==

== ENCOUNTER 2023-08-07 13:00 | Outpatient (AMB) | payer OTHER, SELFPAY ==
--- NOTE | 2023-08-07 13:11 | A.OFFWM_ITS ---
Intake Intake Visit Reasons: VIDEO BH F/U Allergies No Known Allergies Allergy (Verified 07/12/23 12:32) PFSH Medical History (Updated 07/29/23 @ 18:18 by Tej Pelletier MD) DJD (degenerative joint disease) Anxiety Asthma Morbid obesity Surgical History (Updated 06/05/23 @ 09:25 by Carmen Mcgregor CMA) Hx of cholecystectomy Hx of carpal tunnel repair Family History (Updated 06/05/23 @ 09:31 by Carmen Mcgregor CMA) Mother Diabetes Father Cancer Son Asthma Son Asthma Daughter Asthma Social History (Updated 06/05/23 @ 09:25 by Carmen Mcgregor CMA) Alcohol intake: never Patient Tobacco Use Status: Never used Tobacco Behavioral Health Assessment Weight Management Therapy Therapy Notes Details Patient presents for behavioral health assessment as part of the [facility] weight-loss program. The patient reports she's interested in bariatric surgery to improve her health and reach her optimal weight. She is committed to making long-term lifestyle changes and being more active. The patient denies any history of formal mental health treatment or past hospitalization/crisis for behavioral health. She also denies any safety concerns related to suicidal ideation or self-harm, and there is no history of substance use reported. Additionally, there is no evidence of stress/emotional eating, and scores from the Binge Eating Scale (BES) suggest minimal risk for binge eating behavior. PHQ-9 scores also showed no active symptoms or concerns with depression. The mental status exam is within normal limits, indicating that the client's functioning is not impaired. At this time, the patient is cleared from the behavioral health standpoint. Presenting Concerns Referral Source WMP provider. PT sees Dr Green Reason for referral Completion of behavioral health assessment as part of process for weight-loss surgery. Precipitating Event Obesity and overall health. She has been dealing with increased physical challenges impacting her work performance. Living Situation Current Living Situation Rent At risk of losing current housing? No Satisfied with current living situation? Yes Comments PT lives with her 3 children and the family dog. Food/Weight/Diet Expectations of change The initial goal is to lose 10% of weight before surgery, which is about 22 lbs. Ultimate weight goal: 197lbs before surgery. She would like to be at a healthy weight. History/Relationship with food Pt reports she has a normal relationship with food. She denies major emotional eating challenges, however, since she has stopped soda and carbs intake she is noticing increased cravings for sweets. Example of meals before starting the program. Breakfast: scrambled eggs or packages or a breakfast sandwich from [employer] Lunch: @1pm anything from her job (for example [employer] with fries and soda) Dinner: 6pm Rice, meat, salad or pasta. Somedays take out. History/Relationship with weight PT was never been overweight in childhood, and after her pregnancies, she was able to return to her pre- weight quite quickly. Before moving to [place] six years ago, she weighed around 140 pounds. However, over the past six years, she has been gradually gaining weight due to unhealthy food choices and a decrease in physical activity. History/Relationship with dieting Beach body, diet/exercise. Tries methods for 2-3 weeks, usually get unmotivated very quickly. Pt reports she has a hard time exercising alone, she would like to have an exercise partner. Binge Eating Do you frequently eat large amounts of food in short periods of time, not feeling physically hungry? No Do you feel out of control when you eat a large amount of food in a short melinda od of time? No Do you eat large amounts of food rapidly and typically alone? No Night Eating Do you wake up at least once during the night to eat? No If you wake up in the night, do you find that it is necessary to eat something in order to fall back asleep? No Do you have little or no appetite in the morning and feel very hungry in the evening, often overeating between dinner and when you go to bed? No Social History Family history and relationship PT is a single mother of three and is currently in a relationship. Her parents have , and she has limited communicat ion with her six siblings, but she is close to one sister. 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 15 y/o boy, 13 y/o girl and 11 y/o boy. Developmental history and status None reported. Currently WNL. Social support Boyfriend, sister, friend. Community support None. Episcopal/Spirituality None reported. Cultural/Ethnic information Patient hails from [place] and relocated to [facility] 6 years ago. The patient is solely Irish-speaking. Legal Involvement and History Current or historical involvement with the legal system? None reported. Education Highest grade completed 12th grade. Graduated HS. Preferred learning style Learn by doing Currently enrolled in educational program? No Interested in further educational program? 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 No Meaningful activities Family activities. Listen to music. Financial Situation Describe current financial situation Comfortable Financial assistance? Food [place] and Other (fuel assistance. ) Service Service? No Mental Health and Addiction Treatment Current/Past substance abuse? No Current/Past addictive behavior concerns? No Psychiatric history Meet with a counselor 2 times after her mother . But never in formal counseling and/or mental health treatment. Denies ever been in crisis and/or hospitalized for mental health. Also, denies any SI/Sa and/or concerns around self-harm/other-harm. Medical and Physical Health Summary Additional Medical History not covered in history None reported Sexual History concerns None reported Physical exam in the last year? Yes Pain Screening Current pain? No Pain in the last few months? No Medications Is the patient compliant with medications? Not applicable Does the patient have Cosme Guardian in place? Not applicable Does the patient use complimentary health approaches? No Trauma/Abuse History History of trauma? No Questionnaires PHQ-9 Over the last 2 weeks, how often have you been bothered by any of the following problems? 1. Little interest or pleasure in doing things: several days 2. Feeling down, depressed, or hopeless: not at all 3. Trouble falling or staying asleep, or sleeping too much: several days (To fall asleep.) 4. Feeling tired or having little energy: not at all 5. Poor appetite or overeating: not at all 6. Feeling bad about yourself - or that you are a failure or have let yourself or your family down: not at all 7. Trouble concentrating on things, such as reading the newspaper or watching television: not at all 8. Moving or speaking so slowly that other people could have noticed. Or the opposite - being so fidgety or restless that you have been moving around a lot more than usual: not at all 9. Thoughts that you would be better off or of hurting yourself in some way: not at all Total score: 2 Depression Screening Interpretation: Negative Depression Screening Done: Yes 89725 - PHQ-9 Billing: Yes Source: Developed by Drs. Anson Prado, Queta Perea, Tone Ace and colleagues, with an educational katherin from [employer]. Binge Eating Scale Group 1 A. I don't feel self-conscious about my wt. or body size when I'm with others. B. I feel concerned about how I look to others, but it normally does not make me fell disappointed with myself C. I do get self-conscious about my appearance and wt. which makes me feel di sappointed in myself. D. I feel very self-conscious about my wt. and frequently I feel intense shame and disgust for myself. I try to avoid social contacts because of my self- consciousness. Response Group 1: C Group 2 A. I don't have any difficulty eating slowly in the proper manner. B. Although I seem to gobble down foods, I don't end up feeling stuffed because of eating to much. C. At times, I tend to eat quickly and then, I feel uncomfortably full afterwards. D. I have the habit of bolting down my food, without really chewing it. When this happens I usually feel uncomfortably stuffed because I've eaten to much. Response Group 2: A Group 3 A. I feel capable to control my eating urges when I want to. B. I feel like I have failed to control my eating more than the average person. C. I feel utterly helpless when it comes to feeling in control of my eating urges. D. Because I feel so helpless about controlling my eating I have become very desperate about trying to get control. Response Group 3: D Group 4 A. I don't have the habit of eating when I'm bored. B. I sometimes eat when I'm bored, but often I'm able to get busy and get my mind off food. C. I have a regular habit of eating when I'm bored, but occasionally, I can use some other activity to get my mind off eating. D. I have a strong habit of eating when I'm bored. Nothing seems to help me breath the habit. Response Group 4: B Group 5 A. I'm usually physically hungry when I eat something. B. Occasionally, I eat something on impulse even though I really am not hungry. C. I have the regular habit of eating foods, that I might not really enjoy, to satisfy a hungry feeling even though physically, I don't need the food. D. Although I'm not physically hungry, I get a hungry feeling in my mouth that only seems to be satisfied when I eat a food, like sandwich, that fills my mouth. Sometimes, when I eat the food to satisfy my mouth hunger, I then spit the food out so I won't gain weight. Response Group 5: B Group 6 A. I don't feel any guilt or self-hate after I overeat. B. After I overeat, occasionally I feel guilt or self-hate. C. Almost all the time I experience strong guilt or self-hate after I overeat. Response Group 6: A Group 7 A. I don't lose total control of my eating when dieting even after periods when I overeat. B. Sometimes when I eat a forbidden food on a diet, I feel like I blew it and eat even more. C. Frequently, I have the habit of saying to myself, I've blown it now, why not go all the way, when I overeat on a diet. When that happens I eat more. D. I have a regular habit of starting a strict diets for myself but I break the diets by going on an eating binge. My life seems to be either a feast or famine. Response Group 7: B Group 8 A. I rarely eat so much food that I feel uncomfortably stuffed afterwards. B. Usually about once a month, I each such a quantity of food, I end up feeling very stuffed. C. I have regular periods during the month when I eat large amounts of food, either at mealtime or at snacks. D. I eat so much food that I regularly feel quite uncomfortable after eating and sometimes a bit nauseous. Response Group 8: A Group 9 A. My level of calorie intake does not go up very high or go down very low on a regular basis. B. Sometimes after I overeat, I will try to reduce my caloric intake to almost nothing to compensate for the excess calories I've eaten. C. I have a regular habit of overeating during the night. It seems that my routine is not to be hungry in the morning but overeat in the evening. D. In my adult years, I have had week-long periods where I practically starve myself. This follows periods when I overeat. It seems I live a life of either feast or famine. Response Group 9: B Group 10 A. I usually am able to stop eating when I want to. I know when enough is enough. B. Every so often, I experience a compulsion to eat which I can't seem to control. C. Frequently, I experience strong urges to eat which I seem unable to control, but at other times I can control my eating urges. D. I feel incapable of controlling urges to eat. I have a fear of not being able to stop eating voluntarily. Response Group 10: A Group 11 A. I don't have any problem stopping eating when I feel full. B. I usually can stop eating when I feel full but occasionally overeat leaving me feeling uncomfortably stuffed. C. I have a problem stopping eating once I start and usually I feel uncomfortably stuffed after I eat a meal. D. Because I have a problem not being able to stop eating when I want, I sometimes have to induce vomiting to relieve my stuffed feeling. Response Group 11: A Group 12 A. I seem to eat just as much when I'm with others, Family social gatherings as when I'm by myself. B. Sometimes, when I'm with other persons, I don't eat as much as I want to eat because I'm self-conscious about my eating. C. Frequently, I eat only a small amount of food when others are present, because I'm very embarrassed about my eating. D. I feel so ashamed about overeating that I pick times to overeat when I know no one will see me. I feel like a closet eater. Response Group 12: A Group 13 A. I eat three meals a day with only an occasional between meal snack. B. I eat 3 meals a day, but I also normally snack between meals. C. When I am snacking heavily, I get in the habit of skipping regular meals. D. There are regular periods when I seem to be continually eating, with no planned meals. Response Group 13: A Group 14 A. I don't think much about trying to control unwanted eating urges. B. At least some of the time, I feel my thoughts are pre-occupied with trying to control my eating urges. C. I feel that frequently I spend much time thinking about how much I ate or about trying not to eat anymore. D. It seems to me that most of my waking hours are pre-occupied by thoughts about eating or not eating. I feel like I'm constantly struggling not to eat. Response Group 14: A Group 15 A. I don't think about food a great deal. B. I have strong craving for food but they last only for brief periods of time. C. I have days when I can't seem to think about anything else but food. D. Most of my days seem to be pre-occupied with thoughts about food. I feel like I live to eat. Response Group 15: A Group 16 A. I usually know whether or not I'm physically hungry. I take the right portion of food to satisfy me. B. Occasionally, I feel uncertain about knowing whether or not I'm physically hungry. A these times it's hard to know how much food I should take to satisfy me. C. Even though I might know how many calories I should eat, I don't have any idea what is a normal amount of food for me. Response Group 16: A Binge Eating Score: 9 Score less than 17 Minimal Risk Score between 18-26 Moderate Risk Score between 27-46 High Risk Assessment & Plan Assessment & Plan (1) Adjustment disorder, unspecified: Code(s): F43.20 - Adjustment disorder, unspecified Plan The patient has been cleared from a behavioral health perspective and is not required to schedule any follow-up appointments unless she feels the need to do so. The provider has informed the client about available resources, including support and peer support groups, a dedicated Facebook page, and an application designed for post-operative clients. Telehealth Telehealth Telehealth Platform: [facility] Location of provider rendering services: other ([place]. [place], [place]) Location of patient: address on file Patient Identification confirmed using: Name, : Yes Telehealth method: voice only Patient verbally consented to treatment: Yes Patient verbally consented to billing insurance company: Yes Patient informed of any privacy concerns related to visit: No Minutes spent on Phone/Video with Pt.: 45 Coding Level of Care Code Established Pt Tele Psytx 45 mins ([id number]) Patient Type Established Diagnoses Adjustment disorder, unspecified F43.20 Time Spent (min) 45
== END 2023-08-07 14:06 | disposition home or self-care (01) ==
LOC: HO.HBST 13:13
PROVIDERS: PCP Pediatrics; Visit Provider Counselor Mental Health
DX: F43.20 Adjustment disorder, unspecified (principal)
CPT/HCPCS: 90834

== ENCOUNTER → 2023-08-07 13:00 | Outpatient (BNVA) | payer OTHER, SELFPAY | PROVIDERS: PCP Pediatrics; Visit Provider Counselor Mental Health ==

== ENCOUNTER 2023-08-16 07:45 | Outpatient (AMB) | payer OTHER, SELFPAY ==
--- NOTE | 2023-08-16 11:24 | MHC.OFFVISWM ---
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 Exercise: is doing home treadmill daily for 250-300 calories PFSH Medical History (Updated 07/29/23 @ 18:18 by Tej Pelletier MD) DJD (degenerative joint disease) Anxiety Asthma Morbid obesity Surgical History (Updated 08/16/23 @ 11:39 by Ora Aguilar CMA) Hx of laparoscopic partial gastrectomy Hx of cholecystectomy Hx of carpal tunnel repair Family History (Updated 06/05/23 @ 09:31 by Carmen Mcgregor CMA) Mother Diabetes Father Cancer Son Asthma Son Asthma Daughter Asthma Social History (Updated 06/05/23 @ 09:25 by Carmen Mcgregor CMA) Alcohol intake: never Patient Tobacco Use Status: Never used Tobacco Physical Exam Vital Signs: Last Vital Signs Temp 97.9 F 08/16/23 11:36 Pulse 80 08/16/23 11:36 BP 134/80 08/16/23 11:36 Pulse Ox 95 08/16/23 11:36 Oxygen Delivery Method Room Air 08/16/23 11:36 BMI result Body Mass Index 40.5 Telehealth Telehealth Telehealth Platform: Telephone Location of provider rendering services: practice address Location of patient: address on file Patient Identification confirmed using: Name, : Yes Telehealth method: voice only Patient verbally consented to treatment: Yes Patient verbally consented to billing insurance company: Yes Patient informed of any privacy concerns related to visit: Yes Minutes spent on Phone/Video with Pt.: 20 Assessment & Plan Assessment & Plan (1) Morbid obesity: Code(s): E66.01 - Morbid (severe) obesity due to excess calories Category: Medical Plan: 1. Continue same nutritional plan of 4 Celebrate protein bars and dinner at 7pm (8 forks of protein and 8 forks of salad/vegetables). 2. Change treadmill with an incline of 4.0 and speed of 3.5. Increase incline by 1 every 3 min to a max incline of 10.0, stay 3min at 10.0 and then return to 4.0 and repeat same steps until calorie goal is met. Goal is to burn 2000 calories per week on exercise, which means either 300 calories daily, or 400 calories 5 days per week, or 500 calories 4 days per week, or 650 calories 3 days per week. 3. Send me your weight measurements weekly
[2023-08-16 11:36] VITALS: BP 134/80; PULSE 80; TEMP 36.6; O2SAT 95; BMI 31.4
[2023-08-16 11:38] VITALS: BMI 40.5
== END 2023-08-16 11:54 | disposition home or self-care (01) ==
PROVIDERS: PCP Pediatrics; Visit Provider Surgery
DX: E66.01 Morbid (severe) obesity due to excess calories (principal)
CPT/HCPCS: 99213

== ENCOUNTER → 2023-08-16 07:45 | Outpatient (BNVA) | payer OTHER, SELFPAY | PROVIDERS: PCP Pediatrics; Visit Provider Surgery ==

== ENCOUNTER 2023-08-21 09:12 | Day surgery (SDC) | payer OTHER, SELFPAY ==
[2023-07-29 14:29] VITALS: BMI 41.4
--- NOTE | 2023-07-29 14:47 | HO.ANESPROP2 ---
HPI - Anesthesia Eval Consult details Narrative: 32yo F for Upper Endoscopy, 08/21/23 PMF Active Problems Active Problems: All Active Problems DJD (degenerative joint disease) (Acute) Anxiety (Acute) Asthma (Acute) Morbid obesity (Acute) Past Medical History Medical History DJD (degenerative joint disease) Anxiety Asthma Morbid obesity Family History Family History Mother Diabetes Father Cancer Son Asthma Son Asthma Daughter Asthma Surgical History Surgical History Hx of laparoscopic partial gastrectomy Hx of cholecystectomy Hx of carpal tunnel repair Social History Social History Alcohol intake: never Patient Tobacco Use Status: Never used Tobacco Meds Allergies Allergy/AdvReac Type Severity Reaction Status Date / Time No Known Allergies Allergy Verified 08/16/23 11:39 Home Medications ?Medication ?Instructions ?Recorded ?Confirmed ?Last Taken ?Type hydroxyzine HCl 25 mg tablet 25 mg PO QID 06/05/23 07/29/23 Unknown History albuterol 90 mcg/actuation aerosol 90 mcg inhalation Q4H PRN 07/12/23 07/29/23 Unknown History inhaler Shortness Of Breath Exam Height,Weight and Vital Signs: Height 5 ft 1 in Weight 99.337 kg Assessment and Plan Assessment Anesthesia Assessment: Chart Reviewed
--- NOTE | 2023-08-21 10:28 | HO.ANESPROP2 ---
[facility] Active Problems Active Problems: All Active Problems Vitamin B12 deficiency (Acute) Vitamin A deficiency (Acute) Vitamin D deficiency (Acute) DJD (degenerative joint disease) (Acute) Anxiety (Acute) Asthma (Acute) Morbid obesity (Acute) Past Medical History Medical History DJD (degenerative joint disease) Anxiety Asthma Morbid obesity Functional capacity: independent ambulation Patient : No Family History Family History Mother Diabetes Father Cancer Son Asthma Son Asthma Daughter Asthma Family history of problems with anesthesia: No Surgical History Surgical History Hx of laparoscopic partial gastrectomy Hx of cholecystectomy Hx of carpal tunnel repair History of Problems with Anesthesia: No Social History Social History Alcohol intake: never Patient Tobacco Use Status: Never used Tobacco Advance Directives: No Advance Directives Information Provided: Yes Advance Directives on File: No Meds Allergies Allergy/AdvReac Type Severity Reaction Status Date / Time No Known Allergies Allergy Verified 08/16/23 11:39 Active Medications: Current Medications Albuterol Sulfate (Albuterol Sulfate (0.083%) 2.5 Mg/3 Ml Vial.Neb) 2.5 mg INHALE ONCE PRN PRN Reason: Shortness of Breath/Wheezing Lactated Ringer's (Lr) 1,000 mls @ 80 mls/hr IVCONT .[id number] [facility] Lactated Ringer's (Lr) 1,000 mls @ 100 mls/hr IVCONT .Q10H [facility] Home Medications ?Medication ?Instructions ?Recorded ?Confirmed ?Last Taken ?Type hydroxyzine HCl 25 mg tablet 25 mg PO QID 06/05/23 07/29/23 Unknown History albuterol 90 mcg/actuation aerosol 90 mcg inhalation Q4H PRN 07/12/23 07/29/23 Unknown History inhaler Shortness Of Breath Exam Height,Weight and Vital Signs: Height 5 ft 1 in Weight 99.337 kg Airway Mallampati Class: III TM Dist: >3cm Neck ROM: Full Heart: RRR Lungs: CTA Assessment and Plan Assessment Anesthesia Assessment: Anesthesia Plan Discussed Final Anesthetic Review Family History of Problems with Anesthesia: No History of Problems with Anesthesia: No ASA Class: III Final Preanesthetic Review: Meds/Allgs Chart Reviewed, Consent Obtained/Reviewed and Anes Risks/Benef Reviewed Patient Risk: Low Procedure Risk: Low Anesthetic Plan Anesthetic Plan: MAC: Disposition: Standard PACU
[2023-08-21 10:31] VITALS: BP 131/72; PULSE 92; RESP 16; TEMP 36.3; O2SAT 99
[2023-08-21 10:39] LABS: UPreg QC Valid YES; Urine Pregnancy NEGATIVE (NEGATIVE)
[2023-08-21] MEDS: Lactated Ringers 1,000 ML 80 ML IVCONT (10:45)
--- NOTE | 2023-08-21 11:13 | P.BOP_ITS ---
Brief Operative Note Date of Service: 08/21/23 Pre-op diagnosis: GERD Post-op diagnosis: same Procedure: PROCEDURE DATE: 06/29/2021 PREOPERATIVE DIAGNOSIS: GERD POSTOPERATIVE DIAGNOSIS: ?Same as above. 1) small hiatal hernia PROCEDURE: [id number] with biopsies Surgeon: Janneth Pelletier M.D.. Ph.D. Social Service Director: None ? Anesthesia: IV sedation Estimated blood loss: ?Minimal FINDINGS AND PROCEDURE: ? OPERATIVE INDICATIONS: ?The patient is a 32 year old female known to me who is interested in bariatric surgery. The patient has severe GERD. Based on this information I recommended an upper endoscopy to evaluate the patient's symptoms. Risks and complications of the surgery were discussed with the patient in advance particularly the possibility of perforation or bleeding that may require surgical intervention. The patient understood the risks and was in agreement with the plan. ? PROCEDURE: After informed consent was obtained by the patient, the patient was ?transferred to the Operating Room and was placed in the supine position.? After successful induction of IV sedation, a mouth block was inserted and the patient was placed in the left lateral decubitus position. An upper endoscopy was performed next, the oropharynx and esophagus appeared within the normal limits. There was a 1cm hiatal hernia. The z-line was smooth. Two biopsies were obtained from the distal esophagus 2-3 cm proximal to the GE junction and two additional biopsies from the GE junction. The stomach was entered and it appeared to be of normal size. There was no gastritis. There was no stricture or ulcer. A biopsy was obtained from the gastric fundus and the antrum. No significant bleeding was noted from any of the biopsy sites. Retroflexion of the scope revealed a small hiatal hernia. The scope was then advanced into the duodenum which appeared to be normal as well. At that point the duodenum ?and the stomach were decompressed and the scope was withdrawn from the patient's mouth. The patient extubated and was transferred in stable condition to the Recovery Room for further care. I was present and performed all steps of the procedure. There were no residents to assist with this case. Segundo Pelletier M.D., Ph.D. Surgeon: Tej Pelletier MD Anesthesia: MAC Was an Social Service Director used for this Procedure?: No Estimated blood loss (mL): 0 IV fluids (mL): 400 Urine output (mL): 0 (No Ambriz to record output) Pathology: other (1) antrum x1, 2) fundus x1, 3) GE junction x2, 4) distal esophagus x2) Condition: stable Disposition: PACU
--- NOTE | 2023-08-21 11:47 | HO.ANESPROP2 ---
[facility] Active Problems Active Problems: All Active Problems Vitamin B12 deficiency (Acute) Vitamin A deficiency (Acute) Vitamin D deficiency (Acute) DJD (degenerative joint disease) (Acute) Anxiety (Acute) Asthma (Acute) Morbid obesity (Acute) Past Medical History Medical History DJD (degenerative joint disease) Anxiety Asthma Morbid obesity Functional capacity: independent ambulation Family History Family History Mother Diabetes Father Cancer Son Asthma Son Asthma Daughter Asthma Family history of problems with anesthesia: No Surgical History Surgical History Hx of laparoscopic partial gastrectomy Hx of cholecystectomy Hx of carpal tunnel repair History of Problems with Anesthesia: No Social History Social History Alcohol intake: never Patient Tobacco Use Status: Never used Tobacco Advance Directives: No Advance Directives Information Provided: Yes Advance Directives on File: No Patient : No Meds Allergies Allergy/AdvReac Type Severity Reaction Status Date / Time No Known Allergies Allergy Verified 08/16/23 11:39 Active Medications: Current Medications Albuterol Sulfate (Albuterol Sulfate (0.083%) 2.5 Mg/3 Ml Vial.Neb) 2.5 mg INHALE ONCE PRN PRN Reason: Shortness of Breath/Wheezing Lactated Ringer's (Lr) 1,000 mls @ 80 mls/hr IVCONT .[id number] [facility] Last Admin: 08/21/23 10:45 Dose: 80 mls/hr Lactated Ringer's (Lr) 1,000 mls @ 100 mls/hr IVCONT .Q10H [facility] Home Medications ?Medication ?Instructions ?Recorded ?Confirmed ?Last Taken ?Type hydroxyzine HCl 25 mg tablet 25 mg PO QID 06/05/23 07/29/23 Unknown History albuterol 90 mcg/actuation aerosol 90 mcg inhalation Q4H PRN 07/12/23 07/29/23 Unknown History inhaler Shortness Of Breath Exam Height,Weight and Vital Signs: Height 5 ft 1 in Weight 99.337 kg Last Vital Signs Temp 97.4 F 08/21/23 10:31 Pulse 92 08/21/23 10:31 Resp 16 08/21/23 10:31 BP 131/72 08/21/23 10:31 Pulse Ox 99 08/21/23 10:31 O2 Del Method Room Air 08/21/23 10:31 Pertinent Lab Results Pertinent Lab Results: Laboratory Tests 08/21/23 10:20 Urine Test NEGATIVE Airway Mallampati Class: II TM Dist: >3cm Neck ROM: Full Heart: RRR Lungs: CTA Assessment and Plan Assessment Anesthesia Assessment: Anesthesia Plan Discussed Final Anesthetic Review Family History of Problems with Anesthesia: No History of Problems with Anesthesia: No NPO: Yes ASA Class: III Final Preanesthetic Review: Meds/Allgs Chart Reviewed, Consent Obtained/Reviewed and Anes Risks/Benef Reviewed Patient Risk: Intermediate Procedure Risk: Low Anesthetic Plan Anesthetic Plan: MAC: Disposition: Standard PACU
[2023-08-21 11:50] VITALS: BP 126/81; PULSE 87; RESP 16; TEMP 36.1; O2SAT 96
[2023-08-21 12:05] VITALS: BP 127/83; PULSE 81; RESP 16; TEMP 36.1; O2SAT 99
--- NOTE | 2023-08-21 12:16 | HO.ANESPROP2 ---
[facility] Active Problems Active Problems: All Active Problems Vitamin B12 deficiency (Acute) Vitamin A deficiency (Acute) Vitamin D deficiency (Acute) DJD (degenerative joint disease) (Acute) Anxiety (Acute) Asthma (Acute) Morbid obesity (Acute) Past Medical History Medical History DJD (degenerative joint disease) Anxiety Asthma Morbid obesity Functional capacity: independent ambulation Family History Family History Mother Diabetes Father Cancer Son Asthma Son Asthma Daughter Asthma Family history of problems with anesthesia: No Surgical History Surgical History Hx of laparoscopic partial gastrectomy Hx of cholecystectomy Hx of carpal tunnel repair History of Problems with Anesthesia: No Social History Social History Alcohol intake: never Patient Tobacco Use Status: Never used Tobacco Meds Allergies Allergy/AdvReac Type Severity Reaction Status Date / Time No Known Allergies Allergy Verified 08/16/23 11:39 Active Medications: Current Medications Albuterol Sulfate (Albuterol Sulfate (0.083%) 2.5 Mg/3 Ml Vial.Neb) 2.5 mg INHALE ONCE PRN PRN Reason: Shortness of Breath/Wheezing Lactated Ringer's (Lr) 1,000 mls @ 80 mls/hr IVCONT .[id number] [facility] Last Infusion: 08/21/23 11:56 Dose: Infused Lactated Ringer's (Lr) 1,000 mls @ 100 mls/hr IVCONT .Q10H [facility] Home Medications ?Medication ?Instructions ?Recorded ?Confirmed ?Last Taken ?Type hydroxyzine HCl 25 mg tablet 25 mg PO QID 06/05/23 07/29/23 Unknown History albuterol 90 mcg/actuation aerosol 90 mcg inhalation Q4H PRN 07/12/23 07/29/23 Unknown History inhaler Shortness Of Breath Exam Height,Weight and Vital Signs: Height 5 ft 1 in Weight 99.337 kg Last Vital Signs Temp 97 F 08/21/23 12:05 Pulse 81 08/21/23 12:05 Resp 16 08/21/23 12:05 BP 127/83 08/21/23 12:05 Pulse Ox 99 08/21/23 12:05 O2 Del Method Room Air 08/21/23 12:05 Pertinent Lab Results Pertinent Lab Results: Laboratory Tests 08/21/23 10:20 Urine Test NEGATIVE Airway Mallampati Class: II TM Dist: >3cm Neck ROM: Full Heart: RRR Lungs: CTA Assessment and Plan Assessment Anesthesia Assessment: Anesthesia Plan Discussed Final Anesthetic Review Family History of Problems with Anesthesia: No History of Problems with Anesthesia: No NPO: Yes ASA Class: II Final Preanesthetic Review: Meds/Allgs Chart Reviewed, Consent Obtained/Reviewed and Anes Risks/Benef Reviewed Patient Risk: Low Procedure Risk: Low Anesthetic Plan Anesthetic Plan: MAC: Disposition: Standard PACU
--- NOTE | 2023-08-21 14:39 | HO.POSTANES ---
Post Anesthesia Evaluation Post Anesthesia Evaluation Date of Service: 08/21/23 Vital Signs: Vital Signs Temp Pulse Resp BP Pulse Ox O2 Del Method 08/21/23 12:05 97 F 81 16 127/83 99 Room Air 08/21/23 11:50 97 F 87 16 126/81 96 Room Air 08/21/23 10:31 97.4 F 92 16 131/72 99 Room Air Anesthesia: Monitored Mental Status: Awake Pain Control: Satisfactory Nausea/Vomiting: None Hydration: Adequate Anesthesia-Related Issues: No Anes. Related Issues
== END 2023-08-21 12:36 | disposition home or self-care (01) ==
PROVIDERS: Nurse Practitioner; PCP Pediatrics; Visit Provider Surgery
PROC: 0DJ08ZZ Inspection of Upper Intestinal Tract, Via Natural or Artificial Opening Endoscopic (ICD-10-PCS; CPT 43235; principal; 2023-08-21 11:50)
DX: K44.9 Diaphragmatic hernia without obstruction or gangrene (principal); K21.9 Gastro-esophageal reflux disease without esophagitis; J45.909 Unspecified asthma, uncomplicated; E66.01 Morbid (severe) obesity due to excess calories; Z68.41 Body mass index [BMI] 40.0-44.9, adult
CPT/HCPCS: 43239; 81025; 88305; 88313; 88342; J2250; J2704

== ENCOUNTER → 2023-08-21 09:12 | Outpatient (BNV) | payer OTHER, SELFPAY | PROVIDERS: PCP Pediatrics; Visit Provider Surgery | DX: K44.9 Diaphragmatic hernia without obstruction or gangrene (principal) | CPT/HCPCS: 43239 ==

== ENCOUNTER 2023-08-26 08:41 | Outpatient (REF) | payer OTHER, SELFPAY ==
--- NOTE | ~2023-08-26 | FL_ITS ---
EXAMINATION: XR FLUOROSCOPY UPPER GI WITH AIR CLINICAL INFORMATION: Preop evaluation prior to bariatric surgery COMPARISON: None TECHNIQUE: Fluoroscopic air contrast upper GI examination was performed utilizing standard techniques with thin and thick barium and effervescent granules. Numerous spot images were obtained. FINDINGS: Dual and single contrast images of the esophagus demonstrate normal caliber, contour, and mucosal pattern. No evidence of stricture, mass, or ulcerations identified. Esophageal peristalsis was normal. There is mild narrowing of the GE junction. A small type I hiatal hernia is present. Gastroesophageal reflux is seen up to the midesophagus. Surgical clips are present in the right upper quadrant. Dual contrast and single contrast images of the stomach demonstrated normal contour and mucosal pattern without evidence of mass, ulceration, or other abnormality. Contrast freely passed into the gastric antrum and duodenal bulb without delay. Single and air-contrast images of the duodenal bulb demonstrate no abnormality. The duodenal sweep has a normal appearance, course, and mucosal fold appearance. The imaged proximal jejunum has a normal fold pattern and caliber. FLUOROSCOPY TIME: 4 minutes 9 seconds Number of Spot Images: 10 Number of Cine: 13 DOSE AREA PRODUCT: 3041 uGy-m2 (microgray-meter squared) FL/FL upper GI w air IMPRESSION: 1. Mild narrowing of the GE junction that may represents achalasia or a benign stricture. Recommend correlation with EGD. 2. Small type I hiatal hernia 3. Moderate gastroesophageal reflux 4. Surgical clips present in the right upper quadrant consistent with prior history of cholecystectomy. This procedure was performed by Jaspreet Loyola PA-C, and supervised by Dr. Bullock
== END 2023-08-26 08:42 | disposition home or self-care (01) ==
LOC: HO.XRAY 08:41
PROVIDERS: PCP Pediatrics; Visit Provider Surgery
DX: E66.01 Morbid (severe) obesity due to excess calories (principal); J45.909 Unspecified asthma, uncomplicated
CPT/HCPCS: 74246

== ENCOUNTER → 2023-08-26 08:43 | Outpatient (BNV) | payer OTHER, SELFPAY | PROVIDERS: PCP Pediatrics; Visit Provider Physician Assistant Surgical | DX: E66.01 Morbid (severe) obesity due to excess calories (principal); Z01.818 Encounter for other preprocedural examination | CPT/HCPCS: 74246 ==

== ENCOUNTER 2023-11-07 13:34 | Outpatient (AMB) | payer OTHER, SELFPAY ==
--- NOTE | 2023-11-07 13:23 | MHC.OFFVISWM ---
Intake Visit Reasons: (tv) appt per Dr Goss Timber Hand Required: Yes Timber Hand Name: office cmi Allergies No Known Allergies Allergy (Verified 08/16/23 11:39) Medication List - Last Reconciled 11/07/23 by WILFRID Cox albuterol 90 mcg/actuation 90 mcg inhalation Q4H PRN cholecalciferol (vitamin D3) 125 mcg PO DAILY hydroxyzine HCl 25 mg PO QID mecobalamin (vitamin B12) 1,000 mcg sublingual DAILY pantoprazole 40 mg PO DAILY vitamin A palmitate 10,000 units PO DAILY HPI Comments Details: Patient is a 32-year-old female who initially presented to the Surgical weight loss program on 06/1923 with a weight of 219.2 and a BMI of 41.4. She states she has been working 2 jobs and has not been following the meal plan. SHe has not weighed herself in her recent memory. She has not responded to text messages. She did not change any lifestyle habits. She hasn't changed her eating and not doing anything towards weight loss or commitmnet to the program. She is going to take a break at this time from the program. [facility] Medical History DJD (degenerative joint disease) Anxiety Asthma Morbid obesity Surgical History Hx of laparoscopic partial gastrectomy Hx of cholecystectomy Hx of carpal tunnel repair Family History Mother Diabetes Father Cancer Son Asthma Son Asthma Daughter Asthma Social History Alcohol intake: never Patient Tobacco Use Status: Never used Tobacco Telehealth Telehealth Telehealth Platform: Telephone Location of provider rendering services: practice address Location of patient: address on file Patient Identification confirmed using: Name, : Yes Telehealth method: voice only Patient verbally consented to treatment: Yes Patient verbally consented to billing insurance company: Yes Patient informed of any privacy concerns related to visit: Yes Minutes spent on Phone/Video with Pt.: 10 Assessment & Plan Assessment & Plan (1) Morbid obesity: Code(s): E66.01 - Morbid (severe) obesity due to excess calories Category: Medical Plan: Patient is unable to commit to the program at this time. She has been working 2 jobs. She is going to withdrawal from the program. She may return to the program at any time in the future if she wishes.
== END 2023-11-07 13:48 | disposition home or self-care (01) ==
LOC: HO.HBS 13:34
PROVIDERS: PCP Pediatrics; Visit Provider Physician Assistant Surgical
DX: E66.01 Morbid (severe) obesity due to excess calories (principal)
CPT/HCPCS: 99213

== ENCOUNTER → 2023-11-07 13:34 | Outpatient (BNVA) | payer OTHER, SELFPAY | PROVIDERS: PCP Pediatrics; Visit Provider Physician Assistant Surgical ==